=== PATIENT | male | born 1960 | race Caucasian/White ===

== ENCOUNTER 2021-02-22 12:02 | Emergency (ER) | payer BC, SELFPAY ==
[2021-02-22 15:03] LABS: Basophils % 0.4 % (0-1.3); Hematocrit 50.6 % (39.6-49.0); Lymphocytes % 17.5 % (15.3-44.8); MPV 8.5 fL (7.6-11.3); RBC Red Blood Cell Count 5.46 M/uL (4.33-5.43)
[2021-02-22 15:17] LABS: Albumin 3.5 g/dL (3.4-5.0); Bilirubin Direct 0.2 mg/dL (0-0.2); Bilirubin Total 0.7 mg/dL (0.2-1.0); Potassium 4.1 mmol/L (3.5-5.1); Protein, Total 7.8 g/dL (6.4-8.2)
--- NOTE | 2021-02-22 16:17 | RAD REPORT ---
EXAM DESCRIPTION: CTAbdomen Pelvis W Contrast - 02/22/2021 4:04 pm CLINICAL HISTORY: . ABD PAIN COMPARISON: No comparisons TECHNIQUE: Biphasic CT imaging of the abdomen and pelvis was performed with 100 ml non-ionic IV cont rast. All CT scans are performed using dose optimization technique as appropriate and may include automated exposure control or mA/KV adjustment according to patient size. FINDINGS: Lower chest: Nonspecific subpleural nodularity in the lower lungs. Coronary artery calcifi cation. Liver: No acute abnormality or suspicious lesions. Biliary: No biliary ductal dilatation. Stomach: No significant focal abnormality. Duodenum: No significant focal abnormality. Pancreas: No significant abnormality. Spleen: No significant abnormality. Adrenal: No suspicious lesions. Kidney/ureter: No hydronephrosis. No renal calculi. Retroperitoneum: No retroperitoneal adenopathy. Vascular: No aneurysm. Bowel: No significant focal abnormality. Normal appendix. Peritoneum: No ascites or free air. Bladder: Grossly unremarkable. Reproductive: No adnexal masses. Bones: No acute fracture. Other: n/a IMPRESSION: No acute intra-abdominal or pelvic finding. Nonspecific subpleural nodularity in the low er lungs could reflect atelectasis versus mild infection/inflammation. Normal appendix. No urinary tr act calculi identified.
--- NOTE | 2021-02-22 16:42 | RAD REPORT ---
EXAM DESCRIPTION: RAD - Chest Single View - 02/22/2021 4:23 pm CLINICAL HISTORY: COUGH COMPARISON: CHEST SINGLE VIEW dated 11/26/2012; Abdomen Pelvis W Contrast dated 02/22/2021 FINDINGS: Lines: None. Lungs: No evidence of edema or pneumonia. Pleural: No significant pleural effusions or pneumothorax. Cardiac: The heart size is within normal limits. Bones: No acute fractures. Other: IMPRESSION: No acute cardiopulmonary disease.
[2021-02-22] MEDS ORDERED: NA CHLORIDE 0.9% 1,000 ML ONE (18:37)
[2021-02-22 22:21] LABS: Urine Blood Negative (Negative); Urine Glucose 2+ (Negative); Urine Protein 2+ (Negative); Urine Specific Gravity >=1.030 (1.005-1.030)
--- NOTE | 2021-02-22 22:38 | ER ---
Nurse's Notes [facility] Name: Neftali Aldana Jr Age: 60 yrs Sex: Male : 1960 Arrival Date: 02/22/2021 Time: 12:03 Bed 26 Private MD: Adam Stacy T Diagnosis: Coronavirus infection, unspecified Presentation: 02/22 12:37 Chief complaint: Patient states: i guess it started a couple of months ago. i had a tw2 light flu and got over. i wasn't tested. it wasn't that bad. then about a week ago i started feeling bad again. i think i ate something bad. i dont know if i have IBS or appendix problems or gallbladder got hot and warm to the touch. my back started hurting. i think i had shingles and that went away . those were on my stomach and my right side. dark urine for 3 or 4 weeks. 12:37 Method Of Arrival: Ambulatory tw2 12:39 Chief complaint: Patient states: i also have chest pain that started yesterday and tw2 blood when i blow my nose. and i am very weak. chest pain with coughing and palpation. Coronavirus screen: congestion, cough unrelated to allergies, difficulty breathing, fatigue, shortness of breath, Client presents with at least one sign or symptom that may indicate coronavirus-19. Standard/surgical mask placed on the client. Provider contacted for isolation considerations. Ebola Screen: Patient denies travel to an Ebola-affected area in the 21 days before illness onset. Initial Sepsis Screen: Does the patient meet any 2 criteria? No. Patient's initial sepsis screen is negative. Does the patient have a suspected source of infection? No. Patient's initial sepsis screen is negative. Risk Assessment: Do you want to hurt yourself or someone else? Patient reports no desire to harm self or others. 12:43 Onset of symptoms was February 22, 2021. tw2 12:43 Acuity: MIRNA 3 tw2 Triage Assessment: 12:44 General: Appears in no apparent distress. Behavior is calm, cooperative, appropriate tw2 for age. Pain: Complains of pain in abdomen. Cardiovascular: Reports pain with palpation. Respiratory: Reports pain with respiration. Historical: - Allergies: 12:40 Yeast; tw2 12:40 "foot fungus medicine"; tw2 - Home Meds: 12:40 Probiotic oral [Active]; ibuprofen 400 mg Oral tab 1 tab every 6 hours [Active]; tw2 - PMHx: 12:40 Diabetes mellitus; tw2 - PSHx: 12:40 stomach surgery, by Dr. Duvall; tw2 - Immunization history:: Client reports having NOT received the Covid vaccine. - Social history:: Smoking status: Patient denies any tobacco usage or history of. - Family history:: No immediate family members are acutely ill. - Code Status:: Full code. Screenin:31 Abuse screen: Denies threats or abuse. Nutritional screening: No deficits noted. kh1 Tuberculosis screening: No symptoms or risk factors identified. Fall Risk None identified. Assessment: 14:27 General: Appears in no apparent distress. Pain: Complains of pain in chest Pain does kh not radiate. Pain currently is 3 out of 10 on a pain scale. Quality of pain is described as tightness Pain began gradually. 14:42 Reassessment: patient provided with urinal, specimen container, wipes and education for ap3 urine collection. patient verbalized understanding. 16:00 Reassessment: Patient appears in no apparent distress at this time. No changes from [facility] previously documented assessment. Patient and/or family updated on plan of care and expected duration. Pain level reassessed. Patient is alert, oriented x 3, equal unlabored respirations, skin warm/dry/pink. 17:00 Reassessment: Patient appears in no apparent distress at this time. No changes from [facility] previously documented assessment. Patient and/or family updated on plan of care and expected duration. Pain level reassessed. Patient is alert, oriented x 3, equal unlabored respirations, skin warm/dry/pink. 19:09 Reassessment: Patient appears in no apparent distress at this time. No changes from [facility] previously documented assessment. Patient and/or family updated on plan of care and expected duration. Pain level reassessed. Patient is alert, oriented x 3, equal unlabored respirations, skin warm/dry/pink. Vital Signs: 12:43 BP 126 / 95; Pulse 100; Resp 18; Temp 99.0(TE); Pulse Ox 100% on R/A; Weight 74.84 kg tw2 (R); 14:27 BP 156 / 97; Pulse 103; Resp 20; Temp 99.2; Pulse Ox 96% on R/A; kh1 23:47 BP 137 / 93; Pulse 94; Resp 20; Temp 99.1; Pulse Ox 98% ; wr ED Course: 12:03 Patient arrived in ED. am2 12:05 Adam Stacy MD is Private Physician. am2 12:44 Triage completed. tw2 12:44 Arm band placed on. tw2 14:11 Mary Mcgowan FNP-C is PHCP. kb 14:11 Puneet Wan MD is Attending Physician. kb 14:20 Amy Escobar is Primary Nurse. kh1 14:31 Patient has correct armband on for positive identification. Bed in low position. Call [facility] light in reach. Side rails up X 1. electronic device monitor on. Pulse ox on. NIBP on. 14:32 No provider procedures requiring assistance completed. kh1 14:32 Patient maintains SpO2 saturation greater than 95% on room air. kh1 14:43 Basic Metabolic Panel Sent. 1 14:43 CBC with Diff Sent. 1 14:43 Hepatic Function Sent. 1 14:43 Lipase Sent. 1 16:03 CT Abd/Pelvis - IV Contrast Only In Process Unspecified. EDMS 16:23 Chest Single View XRAY In Process Unspecified. EDMS 18:33 PHCP role handed off by Mary Mcgowan FNP-C [facility] 18:33 Ovidio Malin PA is PHCP. jero Administered Medications: 18:15 Drug: NS 0.9% 1000 ml Route: IV; Rate: 1000 ml; Site: right antecubital; ap3 Outcome: 22:38 Discharge ordered by . jero 23:49 Patient left the ED. Signatures: Dispatcher [employer] EDMS Mary Mcgowan FNP-C FNP-Ckb Mickail, Joel, PA PA jmm Wise, Tara RN RN tw2 Sharon Lund am2 Sharon Mejía RN RN ap3 Amy Escobar 1 Epifanio Handley Corrections: (The following items were deleted from the chart) 12:42 12:40 Home Meds: None; tw2 tw2
--- NOTE | 2021-02-22 22:39 | EDPHYS ---
Physician Documentation [facility] Name: Neftali Aldana Jr Age: 60 yrs Sex: Male : 1960 Arrival Date: 02/22/2021 Time: 12:03 Bed 26 Private MD: Adam Stacy T ED Physician Puneet Wan HPI: 02/22 17:41 This 60 yrs old Male presents to ER via Ambulatory with complaints of RLQ Abd kb swelling, Chest Pain, Back Pain, bloody phlegm, Hip Pain, Doesn't Feel Right. 17:41 The patient or guardian reports cough, that is intermittent, described as moderate, kb with productive sputum. Onset: The symptoms/episode began/occurred 2 week(s) ago. Severity of symptoms: At their worst the symptoms were moderate, in the emergency department the symptoms are unchanged. Modifying factors: The symptoms are alleviated by nothing, the symptoms are aggravated by nothing. Associated signs and symptoms: The patient has no apparent associated signs or symptoms. The patient has not experienced similar symptoms in the past. The patient has not recently seen a physician. Pt reports cough for 2 weeks. States "I think I have covid and a few other things." Reports abd pain for a couple of months as well. Historical: - Allergies: 12:40 Yeast; tw2 12:40 "foot fungus medicine"; tw2 - Home Meds: 12:40 Probiotic oral [Active]; ibuprofen 400 mg Oral tab 1 tab every 6 hours [Active]; tw2 - PMHx: 12:40 Diabetes mellitus; tw2 - PSHx: 12:40 stomach surgery, by Dr. Duvall; tw2 - Immunization history:: Client reports having NOT received the Covid vaccine. - Social history:: Smoking status: Patient denies any tobacco usage or history of. - Family history:: No immediate family members are acutely ill. - Code Status:: Full code. ROS: 17:41 Constitutional: Negative for fever, chills, and weight loss. kb 17:41 Respiratory: Positive for cough, Negative for dyspnea on exertion, hemoptysis, kb orthopnea, pleurisy, shortness of breath, sputum production, wheezing. 17:41 Abdomen/GI: Positive for abdominal pain. 17:41 All other systems are negative. Exam: 17:41 Constitutional: This is a well developed, well nourished patient who is awake, alert, kb and in no acute distress. Head/Face: Normocephalic, atraumatic. ENT: Moist Mucous membranes Cardiovascular: Regular rate and rhythm with a normal S1 and S2. No gallops, murmurs, or rubs. No pulse deficits. Respiratory: Respirations even and unlabored. No increased work of breathing, no retractions or nasal flaring. Abdomen/GI: Soft, non-tender. No distention Skin: Warm, dry with normal turgor. Normal color. MS/ Extremity: Pulses equal, no cyanosis. Neurovascular intact. Full, normal range of motion. Neuro: Awake and alert, GCS 15, oriented to person, place, time, and situation. Moves all extremities. Normal gait. Psych: Awake, alert, with orientation to person, place and time. Behavior, mood, and affect are within normal limits. Vital Signs: 12:43 BP 126 / 95; Pulse 100; Resp 18; Temp 99.0(TE); Pulse Ox 100% on R/A; Weight 74.84 kg tw2 (R); 14:27 BP 156 / 97; Pulse 103; Resp 20; Temp 99.2; Pulse Ox 96% on R/A; kh1 23:47 BP 137 / 93; Pulse 94; Resp 20; Temp 99.1; Pulse Ox 98% ; wr MDM: 14:11 Patient medically screened. kb 17:41 Data reviewed: vital signs, nurses notes. Data interpreted: Pulse oximetry: on room air kb is 96 %. Interpretation: normal. Counseling: I had a detailed discussion with the patient and/or guardian regarding: the historical points, exam findings, and any diagnostic results supporting the discharge/admit diagnosis, lab results, radiology results, the need for outpatient follow up, a family practitioner, to return to the emergency department if symptoms worsen or persist or if there are any questions or concerns that arise at home. 02/22 14:11 Order name: Basic Metabolic Panel; Complete Time: 15:18 kb 02/22 14:11 Order name: CBC with Diff; Complete Time: 15:12 kb 02/22 14:11 Order name: Hepatic Function; Complete Time: 15:18 kb 02/22 14:11 Order name: Lipase; Complete Time: 15:18 kb 02/22 17:43 Order name: SARS-COV-2 RT PCR; Complete Time: 17:45 EDMS 02/22 14:11 Order name: IV Saline Lock; Complete Time: 14:42 kb 02/22 14:11 Order name: Labs collected and sent; Complete Time: 14:42 kb 02/22 15:24 Order name: Chest Single View XRAY; Complete Time: 16:43 kb 02/22 15:24 Order name: CT Abd/Pelvis - IV Contrast Only; Complete Time: 16:26 kb 02/22 20:15 Order name: BMP; Complete Time: 22:37 jmm 02/22 22:21 Order name: Urine Dipstick-Ancillary; Complete Time: 22:24 EDMS Administered Medications: 18:15 Drug: NS 0.9% 1000 ml Route: IV; Rate: 1000 ml; Site: right antecubital; ap3 Disposition: 02/23 04:48 Co-signature as Attending Physician, Puneet Wan MD I agree with the assessment and kdr plan of care. Disposition Summary: 02/22/21 22:38 Discharge Ordered Location: Home [facility] Condition: Stable [facility] Diagnosis - Coronavirus infection, unspecified [facility] Followup: kb - With: Emergency Department - When: As needed - Reason: Worsening of condition Followup: kb - With: Private Physician - When: 2 - 3 days - Reason: Recheck today's complaints, Continuance of care, Re-evaluation by your physician Discharge Instructions: - Discharge Summary Sheet kb - COVID-19 kb - COVID-19 Frequently Asked Questions kb Forms: - Medication Reconciliation Form [facility] - Thank You Letter jm - Antibiotic Education jm - Prescription Opioid Use [facility] Signatures: Dispatcher [employer] EDMS Mary Mcgowan, TANK BOTTOM ASSEMBLER-C TANK BOTTOM ASSEMBLER-Ckb Puneet Wan MD MD kdr Mickail, Joel, PA PA m Doreen Garrido RN RN tw2 Sharon Mejía RN RN ap3 Amy Escobar formerly [facility] Corrections: (The following items were deleted from the chart) 02/22 12:42 12:40 Home Meds: None; tw 16:07 15:25 CORONAVIRUS+ ordered. EDOH EDMS
[2021-02-22 23:57] VITALS: BP 137/93; TEMP 99.1; O2SAT 98
== END 2021-02-22 23:49 | disposition home or self-care (01) ==
LOC: ER 12:02
DX: U07.1 COVID-19 (principal); E11.9 Type 2 diabetes mellitus without complications
CPT/HCPCS: 36415; 71045; 74177; 80048; 80076; 81003; 83690; 85025; 99285; J7030; Q9967; U0003

== ENCOUNTER → 2023-06-15 | Emergency (ER) | payer OTHER ==
[~2023-06-15] MED LIST: MAGNESIUM CITRATE 300 ML BOT ONE; NA CHLORIDE 0.9% 1,000 ML ONE
[2023-06-15 18:32] LABS: Absolute Lymphocytes (CBC) 1.6 K/uL (0.7-4.9); Hematocrit 39.8 % (39.6-49.0); Lymphocytes % 19.6 % (15.3-44.8); MCV 93.1 fL (80-100); Platelets 183 thou/uL (152-406); RBC Red Blood Cell Count 4.27 M/uL (4.33-5.43)
[2023-06-15 18:50] LABS: Albumin 3.1 g/dL (3.4-5.0); Bilirubin Total 0.8 mg/dL (0.2-1.0); Potassium 4.9 mEq/L (3.5-5.1); Protein, Total 6.8 g/dL (6.4-8.2)
--- NOTE | 2023-06-15 20:12 | RAD REPORT ---
EXAM DESCRIPTION: CTAbdomen Pelvis W Contrast - 06/15/2023 7:55 pm CLINICAL HISTORY: Abdominal pain. ABD PAIN COMPARISON: <Comparisons> TECHNIQUE: Biphasic CT imaging of the abdomen and pelvis was performed with 100 ml non-ionic IV cont rast. All CT scans are performed using dose optimization technique as appropriate and may include automated exposure control or mA/KV adjustment according to patient size. FINDINGS: The lung bases are clear. The liver, spleen, pancreas, adrenal glands and kidneys are within normal limits. No bowel obstruction, free air, free fluid or abscess. Asymmetric thickening of the rectal wall is se en in the pelvis, measuring up to 18 mm. There is significant fecal retention seen throughout the col on. The appendix is normal. No evidence of significant lymphadenopathy. No suspicious bony findings. IMPRESSION: There is a large amount of retained stool throughout the colon. Asymmetric wall thickening of the rectal wall in the pelvis noted, measuring up to 18 mm in the left lateral aspect. No acute or aggressive abnormality elsewhere detected.
--- NOTE | 2023-06-15 20:32 | ER ---
Nurse's Notes [facility] Name: Neftali Aldana Jr Age: 63 yrs Sex: Male : 1960 Arrival Date: 06/15/2023 Time: 16:52 Bed 18 Private MD: Diagnosis: Constipation Presentation: 06/15 17:20 Chief complaint: Patient states: Pt states he has not had a bowel movement since tl4 06/08/23. Pt has pertinent history of stage 3 rectal cancer. Coronavirus screen: Vaccine status: Patient reports receiving the 2nd dose of the covid vaccine. Ebola Screen: Patient negative for fever greater than or equal to 101.5 degrees Fahrenheit, and additional compatible Ebola Virus Disease symptoms Patient denies exposure to infectious person. Patient denies travel to an Ebola-affected area in the 21 days before illness onset. No symptoms or risks identified at this time. Initial Sepsis Screen: Does the patient meet any 2 criteria? No. Patient's initial sepsis screen is negative. Does the patient have a suspected source of infection? No. Patient's initial sepsis screen is negative. Risk Assessment: Do you want to hurt yourself or someone else? Patient reports no desire to harm self or others. Onset of symptoms was June 08, 2023. 17:20 Method Of Arrival: Ambulatory tl4 17:20 Acuity: MIRNA 2 tl4 Triage Assessment: 17:25 General: Appears uncomfortable, Behavior is calm, cooperative. Pain: Complains of pain tl4 in abdomen. GI: Abdomen is tender to palpation Reports lower abdominal pain, constipation. Historical: - Allergies: 17:24 Yeast; tl4 - PMHx: 17:24 diabetes mellitus; cancer rectum; tl4 - PSHx: 17:24 stomach surgery; tl4 - Immunization history:: Adult Immunizations unknown. - Social history:: Smoking status: Patient denies any tobacco usage or history of. Screenin:25 [facility] ED Fall Risk Assessment (Adult) History of falling in the last 3 months, kc6 including since admission No falls in past 3 months (0 pts) Confusion or Disorientation No (0 pts) Intoxicated or Sedated No (0 pts) Impaired Gait No (0 pts) Mobility Assist Device Used No (0 pt) Altered Elimination No (0 pt) Score/Fall Risk Level 0 - 2 = Low Risk. Abuse screen: Denies threats or abuse. Denies injuries from another. Nutritional screening: No deficits noted. Tuberculosis screening: No symptoms or risk factors identified. Assessment: 18:27 General: Appears in no apparent distress. uncomfortable, well groomed, well developed, kc6 Behavior is calm, cooperative, appropriate for age. Pain: Complains of pain in abdomen Pain currently is 7 out of 10 on a pain scale. Neuro: Level of Consciousness is awake, alert, obeys commands, Oriented to person, place, time, situation, Appropriate for age. Cardiovascular: Capillary refill < 3 seconds. Respiratory: Airway is patent Trachea midline Respiratory effort is even, unlabored, Respiratory pattern is regular, symmetrical. GI: Abdomen is flat, non-distended, Last BM was June 08, 2023. Bowel sounds present X 4 quads. Reports constipation, nausea, Patient currently denies diarrhea, vomiting. : No signs and/or symptoms were reported regarding the genitourinary system. EENT: No signs and/or symptoms were reported regarding the EENT system. Derm: No signs and/or symptoms reported regarding the dermatologic system. Skin is intact, is healthy with good turgor, Skin is pink, warm \T\ dry. Musculoskeletal: No signs and/or symptoms reported regarding the musculoskeletal system. Circulation, motion, and sensation intact. Capillary refill < 3 seconds, Range of motion: intact in all extremities. 19:17 Reassessment: Patient appears in no apparent distress at this time. No changes from km8 previously documented assessment. Patient and/or family updated on plan of care and expected duration. Pain level reassessed. Patient is alert, oriented x 3, equal unlabored respirations, skin warm/dry/pink. pt re-educated on need for urine sample; pt unable to give at this time, will call out when he is able to. Vital Signs: 17:20 BP 112 / 72; Pulse 99; Resp 18; Temp 97.4; Pulse Ox 100% on R/A; Weight 58.97 kg; tl4 Height 5 ft. 5 in. ; Pain 8/10; 18:36 BP 126 / 82; Pulse 90; Resp 19; Pulse Ox 100% on R/A; Pain 7/10; kc6 19:13 BP 120 / 68; Pulse 75; Resp 16; Pulse Ox 100% on R/A; km8 20:57 BP 120 / 71; Pulse 78; Resp 16; Pulse Ox 100% on R/A; km8 17:20 Body Mass Index 21.63 (58.97 kg, 165.1 cm) tl4 17:20 Pain Scale: Adult tl4 18:36 Pain Scale: Adult kc6 ED Course: 16:59 Patient arrived in ED. ae5 17:03 Mary Mcgowan, [facility] kb 17:03 Henrique Rea MD is Attending Physician. kb 17:23 Triage completed. tl4 17:25 Arm band placed on left wrist. tl4 18:07 Dayna Marte, [place] is Primary Nurse. kc6 18:25 Inserted saline lock: 20 gauge in left antecubital area, using aseptic technique. Blood kc6 collected. Patient maintains SpO2 saturation greater than 95% on room air. 18:26 Patient has correct armband on for positive identification. Bed in low position. Call kc6 light in reach. Side rails up X 1. Client placed on continuous cardiac and pulse oximetry monitoring. NIBP monitoring applied. 19:57 CT Abd/Pelvis - IV Contrast Only In Process Unspecified. EDMS 20:33 Provided Education on: d/c teaching. km8 20:33 No provider procedures requiring assistance completed. km8 20:57 IV discontinued, intact, bleeding controlled, No redness/swelling at site. Pressure km8 dressing applied. Administered Medications: 18:25 Drug: NS 0.9% IV 1000 ml IV at 1 bolus Per protocol; 1000 mL bolus Route: IV; Rate: 1 kc6 bolus; Site: left antecubital; 20:00 Follow up: IV Status: Completed infusion; IV Intake: 1000ml km8 20:51 Drug: Magnesium Citrate PO Liquid 300 ml PO once Route: PO; km8 20:58 Follow up: Response: Medication administered at discharge. km8 Medication: 20:33 VIS not applicable for this client. km8 Intake: 20:00 IV: 1000ml; Total: 1000ml. km8 Outcome: 20:31 Discharge ordered by . kb 20:57 Discharged to home ambulatory, km8 20:57 Condition: good 20:57 Discharge instructions given to patient, Instructed on discharge instructions, follow up and referral plans. Demonstrated understanding of instructions, follow-up care, 20:58 Patient left the ED. km8 Signatures: Dispatcher [employer] EDIN Juan M Mary, RADIOPHONE OPERATOR-C RADIOPHONE OPERATOR-Dayna Elias, RN RN kc6 GabeAnna RN RN km8 Harpreet Sharpe 4 Nettie Cruz ae5
--- NOTE | 2023-06-15 20:32 | EDPHYS ---
Physician Documentation [facility] Name: Neftali Aldana Jr Age: 63 yrs Sex: Male : 1960 Arrival Date: 06/15/2023 Time: 16:52 Bed 18 Private MD: ED Physician Henrique Rea HPI: 06/15 17:22 This 63 yrs old Male presents to ER via Unassigned with complaints of Constipation. kb 17:22 Dr Adam Parker with oncology consultants recommended pt come to the ER for kb constipation x1 week to make sure he does not have a bowel obstruction. Pt states he has rectal cancer. Denies abd pain, reports fullness to abd. Denies urge to have a bowel movement. Historical: - Allergies: 17:24 Yeast; tl4 - PMHx: 17:24 diabetes mellitus; cancer rectum; tl4 - PSHx: 17:24 stomach surgery; tl4 - Immunization history:: Adult Immunizations unknown. - Social history:: Smoking status: Patient denies any tobacco usage or history of. ROS: 17:22 Constitutional: Negative for fever, chills, and weight loss, kb 17:22 Abdomen/GI: Positive for constipation, Negative for abdominal pain, nausea and vomiting, 17:22 All other systems are negative, Exam: 17:22 Constitutional: This is a well developed, well nourished patient who is awake, alert, kb and in no acute distress. Head/Face: Normocephalic, atraumatic. ENT: Moist Mucous membranes Cardiovascular: Regular rate Respiratory: Respirations even and unlabored. No increased work of breathing. Talking in full sentences Skin: Warm, dry with normal turgor. Normal color. MS/ Extremity: Pulses equal, no cyanosis. Neurovascular intact. Full, normal range of motion. Neuro: Awake and alert, GCS 15, oriented to person, place, time, and situation. Moves all extremities. Normal gait. 17:25 Abdomen/GI: Inspection: abdomen appears normal, Palpation: soft, in all quadrants, mild kb abdominal tenderness, in the left upper quadrant and left lower quadrant, moderate abdominal tenderness, in the right upper quadrant and right lower quadrant, Vital Signs: 17:20 BP 112 / 72; Pulse 99; Resp 18; Temp 97.4; Pulse Ox 100% on R/A; Weight 58.97 kg; tl4 Height 5 ft. 5 in. ; Pain 8/10; 18:36 BP 126 / 82; Pulse 90; Resp 19; Pulse Ox 100% on R/A; Pain 7/10; kc6 19:13 BP 120 / 68; Pulse 75; Resp 16; Pulse Ox 100% on R/A; km8 20:57 BP 120 / 71; Pulse 78; Resp 16; Pulse Ox 100% on R/A; km8 17:20 Body Mass Index 21.63 (58.97 kg, 165.1 cm) tl4 17:20 Pain Scale: Adult tl4 18:36 Pain Scale: Adult kc6 MDM: 17:11 Patient medically screened. kb 17:23 Data reviewed: vital signs, nurses notes. kb 17:24 Differential diagnosis: fecal impaction, constipation secondary to rectal cancer, bowel kb obstruction. 20:30 Counseling: I had a detailed discussion with the patient and/or guardian regarding the kb historical points, exam findings, and any diagnostic results supporting the discharge/admit diagnosis, the need for outpatient follow up, a family practitioner, Oncology, to return to the emergency department if symptoms worsen or persist or if there are any questions or concerns that arise at home. 20:30 ED course: No bowel obstruction on CT. Patient given printed copy of results. Patient kb will follow-up with oncologist in [place].. 06/15 17:24 Order name: CBC with Diff; Complete Time: 18:59 kb 06/15 17:24 Order name: CMP; Complete Time: 18:59 kb 06/15 17:24 Order name: Lipase; Complete Time: 18:59 kb 06/15 17:24 Order name: Urinalysis w/ reflexes kb 06/15 17:24 Order name: CT Abd/Pelvis - IV Contrast Only; Complete Time: 20:18 kb 06/15 17:24 Order name: IV Saline Lock; Complete Time: 18:25 kb 06/15 17:24 Order name: Labs collected and sent; Complete Time: 18:25 kb Administered Medications: 18:25 Drug: NS 0.9% IV 1000 ml IV at 1 bolus Per protocol; 1000 mL bolus Route: IV; Rate: 1 kc6 bolus; Site: left antecubital; 20:00 Follow up: IV Status: Completed infusion; IV Intake: 1000ml [facility] 20:51 Drug: Magnesium Citrate PO Liquid 300 ml PO once Route: PO; 8 20:58 Follow up: Response: Medication administered at discharge. [facility] Disposition: 06/16 08:58 Co-signature as Attending Physician, Henrique Rea MD I reviewed the patient's care rn provided by the Advanced Practice Provider and agree with the diagnosis and treatment plan. Disposition Summary: 06/15/23 20:31 Discharge Ordered Notes: Location: Home kb Condition: Stable kb Diagnosis - Constipation kb Followup: kb - With: Emergency Department - When: As needed - Reason: Worsening of condition Followup: kb - With: Private Physician - When: 2 - 3 days - Reason: Recheck today's complaints, Continuance of care, Re-evaluation by your physician Discharge Instructions: - Discharge Summary Sheet kb - Constipation, Adult, [id number] kb Forms: - Medication Reconciliation Form kb - Thank You Letter kb - Antibiotic Education kb - Prescription Opioid Use kb - Patient Portal Instructions kb - Leadership Thank You Letter kb Signatures: Dispatcher [employer] EDMS Mary Mcgowan, [employer]C [employer]-Henrique Artis MD MD rn Campbell, Kaitlyn, RN RN ben6 Anna Bernal RN RN km8 Annemarie, Harpreet 4 Corrections: (The following items were deleted from the chart) 06/15 17:25 17:22 Dr Adam Parker with oncology consultants recommended pt come to the ER for kb constipation x1 week. Pt states he has rectal cancer.. kb 17:26 17:22 Constitutional: This is a well developed, well nourished patient who is awake, kb alert, and in no acute distress. Head/Face: Normocephalic, atraumatic. ENT: Moist Mucous membranes Cardiovascular: Regular rate Respiratory: Respirations even and unlabored. No increased work of breathing. Talking in full sentences Abdomen/GI: Soft, non-tender. No distention Skin: Warm, dry with normal turgor. Normal color. MS/ Extremity: Pulses equal, no cyanosis. Neurovascular intact. Full, normal range of motion. Neuro: Awake and alert, GCS 15, oriented to person, place, time, and situation. Moves all extremities. Normal gait. kb 20:30 17:22 Dr Adam Parker with oncology consultants recommended pt come to the ER for kb constipation x1 week. Pt states he has rectal cancer. Denies abd pain, reports fullness to abd. Denies urge to have a bowel movement. kb
[2023-06-15 20:41] LABS: Urine Bacteria <20 /HPF (<20); Urine Bilirubin NEGATIVE (Negative); Urine Blood Negative (Negative); Urine Clarity Clear (Clear); Urine Color Yellow (Yellow); Urine Glucose 4+ (Negative); Urine Mucus 1+ /HPF (None Seen); Urine Protein 1+ (Negative); Urine RBC <5 /HPF (None Seen); Urine Urobilinogen 1+ (Normal)
[2023-06-15 20:58] LABS: Specific Gravity > 1.030 (1.005-1.030)
[2023-06-15 21:21] VITALS: TEMP 97.4; O2SAT 100
[2023-06-15 21:30] VITALS: BP 120/71
== END ==
LOC: ER 16:52
DX: K59.00 Constipation, unspecified (principal); Z85.048 Personal history of other malignant neoplasm of rectum, rectosigmoid junction, and anus; Z91.018 Allergy to other foods
CPT/HCPCS: 96361; 85025; 81001; 36415; 83690; 80053; 74177; 96360; 99285; Q9967; J7030

== ENCOUNTER 2024-02-04 14:28 | Emergency (ER) | payer OTHER ==
[2024-02-04 14:52] LABS: Absolute Eosinophils 0.1 K/uL (0-0.5); Absolute Lymphocytes (CBC) 1.6 K/uL (0.7-4.9); Absolute Monocytes 0.5 K/uL (0.1-1.3); Absolute Neutrophil 8.6 K/uL (1.8-8.0); Basophils % 0.4 % (0-1.3); Eosinophils % 1.4 % (0-4.4); Hematocrit 42.1 % (39.6-49.0); Hemoglobin 14.3 g/dL (13.6-17.9); Lymphocytes % 14.7 % (15.3-44.8); MCH 32.4 pg (27.0-35.0); MCV 95.4 fL (80-100); MPV 6.9 fL (7.6-11.3); Monocytes % 4.4 % (3.3-12.3); Neutrophils % 79.1 % (41.7-73.7); Platelets 289 thou/uL (152-406); RBC Red Blood Cell Count 4.41 M/uL (4.33-5.43); Red Cell Distribution Width 13.3 % (12.1-15.2)
[2024-02-04] MEDS ORDERED: NA CHLORIDE 0.9% 1,000 ML ONE (15:08)
[2024-02-04] MEDS ORDERED: MORPHINE 4 MG/ML SYR ONE ×2 (15:08→20:09)
[2024-02-04 15:11] LABS: Albumin 3.4 g/dL (3.4-5.0); Albumin/Globulin Ratio 0.9 (1.1-1.8); Anion Gap 8.9 mEq/L (5.0-15.0); Bilirubin Total 0.9 mg/dL (0.2-1.0); Globulin 3.8 g/dL (2.3-3.5); Potassium 3.9 mEq/L (3.5-5.1); Protein, Total 7.2 g/dL (6.4-8.2)
--- NOTE | 2024-02-04 15:48 | RAD REPORT ---
EXAM DESCRIPTION: CTAbdomen Pelvis W Contrast - 02/04/2024 3:35 pm CLINICAL HISTORY: Abdominal pain. ABD PAIN COMPARISON: <Comparisons> TECHNIQUE: Venous phase CT imaging of the abdomen and pelvis was performed with 100 ml non-ionic IV contrast. All CT scans are performed using dose optimization technique as appropriate and may include automated exposure control or mA/KV adjustment according to patient size. FINDINGS: The lung bases are clear. The liver, spleen, pancreas, adrenal glands and kidneys are within normal limits. No bowel obstruction, free air, free fluid or abscess. There is a large amount of stool retained in t he colon. There is significant asymmetric thickening of the medial aspect of the cecum measuring up t o 2.5 cm. The adjacent fat is mildly inflamed. The appendix appears thickened to 11 mm. No suspicious bony findings. IMPRESSION: Asymmetric thickening of the cecum wall is present measure up to 2.5 cm with dilatation of the appendix up to 11 mm. This could indicate acute appendicitis with secondary edema of the cecum , or a cecal mass/neoplasm with secondary dilatation of the appendix. Mild inflammation in the fat pantoja rrounding the cecum is present. Correlation with appropriate laboratory and physical exam findings re commended. Prominent retention of stool is present throughout the colon compatible with significant constipation .
--- NOTE | 2024-02-04 17:01 | ER ---
Nurse's Notes [facility] Name: Neftali Aldana Jr Age: 63 yrs Sex: Male : 1960 Arrival Date: 02/04/2024 Time: 14:28 Bed 9 Private MD: Diagnosis: Cecal mass;Possible Appendicitis;Lower abdominal pain, unspecified;Other constipation Presentation: 02/03 14:42 Chief complaint: EMS states: toned out for severe abdominal pain that started today. me1 Stg 3 rectal cancer w/blockage. reports rectal bleeding. Unable to have BM w/laxatives. Denies n/v. Was on chemo til 2 months ago and is now on radiation- next treatment is tomorrow. Coronavirus screen: Vaccine status: Patient reports being unvaccinated. Ebola Screen: No symptoms or risks identified at this time. Initial Sepsis Screen: Does the patient meet any 2 criteria? No. Patient's initial sepsis screen is negative. Does the patient have a suspected source of infection? No. Patient's initial sepsis screen is negative. Risk Assessment: Do you want to hurt yourself or someone else? Patient reports no desire to harm self or others. Onset of symptoms was February 04, 2024. 14:42 Method Of Arrival: EMS: [facility] pr1 14:42 Acuity: [facility] 3 me1 14:42 Care prior to arrival: Glucose check: 150. pr1 Triage Assessment: 14:42 General: Appears uncomfortable, Behavior is calm, cooperative, appropriate for age. me1 Pain: Complains of pain in abdomen. Historical: - Allergies: 14:50 Yeast; me1 - PMHx: 14:50 cancer rectum; diabetes mellitus; me1 - PSHx: 14:50 stomach surgery; stomach surgery; stomach surgery by Dr Duvall; me1 - Immunization history:: Adult Immunizations up to date. - Infectious Disease History:: Denies. - Social history:: Smoking status: Patient denies any tobacco usage or history of. Screenin:42 [facility] ED Fall Risk Assessment (Adult) History of falling in the last 3 months, me1 including since admission No falls in past 3 months (0 pts) Confusion or Disorientation No (0 pts) Intoxicated or Sedated No (0 pts) Impaired Gait Yes (1 pt) Mobility Assist Device Used Yes (1 pt) Altered Elimination No (0 pt) Score/Fall Risk Level 0 - 2 = Low Risk Maintained a safe environment, Provided non-skid footwear, Hourly rounding (assess needs \T\ fall precautionary measures) done. Abuse screen: Denies threats or abuse. Nutritional screening: No deficits noted. Tuberculosis screening: No symptoms or risk factors identified. Assessment: 14:42 General: See triage assessment. . me1 18:43 Reassessment: attempted to call report. this nurse was left on hold for 11 minutes. ap3 will reattempt. 19:28 General: Report called to AUGUSTA Pitt at [facility]. me1 Vital Signs: 14:42 BP 126 / 68; Pulse 67; Resp 16; Temp 98.6; Pulse Ox 98% on R/A; Weight 68.04 kg; Height me1 5 ft. 5 in. ; Pain 10/10; 15:47 BP 137 / 71; Pulse 85; Resp 16; Pulse Ox 100% on R/A; me1 17:00 BP 122 / 74; Pulse 98; Resp 17; Pulse Ox 100% on R/A; me1 18:00 BP 133 / 76; Pulse 99; Resp 18; Pulse Ox 99% on R/A; me1 19:00 BP 122 / 68; Pulse 98; Resp 16; Pulse Ox 98% ; me1 20:00 BP 118 / 65; Pulse 97; Resp 16; Temp 98.2; Pulse Ox 98% on R/A; me1 14:42 Body Mass Index 24.96 (68.04 kg, 165.1 cm) me1 14:42 Pain Scale: Adult pr1 ED Course: 14:29 Patient arrived in ED. ec2 14:29 John Duffy MD is Attending Physician. ec2 14:42 Leidy Forte, [place] is Primary Nurse. me1 14:42 No provider procedures requiring assistance completed. me1 14:42 Patient has correct armband on for positive identification. Bed in low position. Call me1 light in reach. Side rails up X2. Provided Education on: POC. Verbalized understanding.. Client placed on continuous cardiac and pulse oximetry monitoring. NIBP monitoring applied. Pulse ox on. NIBP on. 14:46 Initial lab(s) drawn, by me, sent to lab. Inserted saline lock: 20 gauge in left zm antecubital area, using aseptic technique. Blood collected. Flushed with 10 mL NS. 14:47 CBC with Diff Sent. zm 14:47 CMP Sent. zm 14:47 Lipase Sent. zm 14:50 Triage completed. me1 14:50 Arm band placed on Patient placed in an exam room. me1 15:36 CT Abd/Pelvis - IV Contrast Only In Process Unspecified. EDMS 17:[address] [facility]. bd 17:58 Urine collected: clean catch specimen, moiz colored. me1 18:08 pt accepted in transfer to [facility] by Dr Gonzalez, admin approval given by Lucila lopez RN,pt going to 1834. 20:12 Patient transferred, IV remains in place. me1 Administered Medications: 15:21 Drug: NS 0.9% IV 1000 ml IV at 1 bolus Per protocol; 1000 mL bolus Route: IV; Rate: 1 me1 bolus; Site: left antecubital; 19:20 Follow up: Response: No adverse reaction; IV Status: Completed infusion; IV Intake: me1 1000ml 15:21 Drug: morphine IVP or IV 4 mg IVP once over 4 mins Route: IVP; Infused Over: 4 mins; me1 Site: left antecubital; 15:51 Follow up: Response: No adverse reaction; Pain is decreased me1 15:21 Drug: Droperidol IVP 1.25 mg IVP once Route: IVP; Site: left antecubital; me1 15:51 Follow up: Response: No adverse reaction; Nausea is decreased me1 17:52 Drug: Piperacillin-Tazobactam IVPB 3.375 grams IVPB once over 60 mins; (mix in NS 100 me1 mL) Route: IVPB; Infused Over: 60 mins; Site: left antecubital; 18:52 Follow up: Response: No adverse reaction; IV Status: Completed infusion; IV Intake: me1 100ml 20:11 Drug: morphine IVP or IV 4 mg IVP once over 4 mins Route: IVP; Infused Over: 4 mins; me1 Site: left antecubital; 20:11 Follow up: Response: No adverse reaction; Pain is decreased me1 Medication: 14:42 VIS not applicable for this client. me1 Intake: 18:52 IV: 100ml; Total: 100ml. me1 19:20 IV: 1000ml; Total: 1100ml. me1 Outcome: 17:01 ER care complete, transfer ordered by . ec2 20:12 Transferred by ground EMS to [facility], Transfer form completed. me1 X-rays sent w/ patient. 20:12 Condition: stable 20:12 Instructed on discharge instructions, the need for transfer, 20:15 Patient left the ED. me1 Signatures: Dispatcher [employer] EDCaro Mclean Amanda, RN RN ap3 Irina Stiles Michelle, RN RN me1 John Duffy MD MD ec2
--- NOTE | 2024-02-04 17:01 | EDPHYS ---
Physician Documentation [facility] Name: Neftali Aldana Jr Age: 63 yrs Sex: Male : 1960 Arrival Date: 02/04/2024 Time: 14:28 Bed 9 Private MD: ED Physician John Duffy HPI: 02/03 15:18 This 63 yrs old Male presents to ER via EMS with complaints of Abd Pain > 50 ec2 y/o. 15:18 Patient with history of rectal cancer arrives today for evaluation of generalized ec2 abdominal pain. Patient reports constipation, reports that he is having some difficulty with straining. Patient reports some nausea. Reports history of previous radiation and chemotherapy.. Historical: - Allergies: 14:50 Yeast; me1 - PMHx: 14:50 cancer rectum; diabetes mellitus; me1 - PSHx: 14:50 stomach surgery; stomach surgery; stomach surgery by Dr Duvall; me1 - Immunization history:: Adult Immunizations up to date. - Infectious Disease History:: Denies. - Social history:: Smoking status: Patient denies any tobacco usage or history of. ROS: 15:18 Constitutional: as per hpi ec2 Exam: 15:18 Constitutional: GEN: NAD Head: atraumatic Eyes: EOMI Ears: External ears are ec2 normal. CV: regular rate LUNGS: no respiratory distress ABD: non-distended, soft, generally tender, no guarding, nonrigid. SKIN: no evidence of rashes MSK: no evidence of trauma Vital Signs: 14:42 BP 126 / 68; Pulse 67; Resp 16; Temp 98.6; Pulse Ox 98% on R/A; Weight 68.04 kg; Height me1 5 ft. 5 in. ; Pain 10/10; 15:47 BP 137 / 71; Pulse 85; Resp 16; Pulse Ox 100% on R/A; me1 17:00 BP 122 / 74; Pulse 98; Resp 17; Pulse Ox 100% on R/A; me1 18:00 BP 133 / 76; Pulse 99; Resp 18; Pulse Ox 99% on R/A; me1 19:00 BP 122 / 68; Pulse 98; Resp 16; Pulse Ox 98% ; me1 20:00 BP 118 / 65; Pulse 97; Resp 16; Temp 98.2; Pulse Ox 98% on R/A; me1 14:42 Body Mass Index 24.96 (68.04 kg, 165.1 cm) me1 14:42 Pain Scale: Adult me1 MDM: 14:29 Patient medically screened. ec2 15:18 Data reviewed: vital signs. ED course: Patient arrives today for evaluation of ec2 generalized abdominal pain. Examination remarkable for generally tender abdomen. Will obtain lab work, CT imaging, treat the patient's symptoms. Differential clued processes such as small bowel obstruction, constipation, ileus.. 16:46 ED course: CT imaging shows cecum inflammation, possible appendicitis, possible ec2 neoplasm versus appendicitis. Discussed case with surgery, unclear if this is metastatic disease from patient's rectal cancer versus early appendicitis. Given this information, will transfer to colorectal capable facility.. 17:30 ED course: I discussed the case w/ Dr. Garcia, surgery at [facility] who agrees to consult ec2 on pt, will admit to hospitalist. . 17:54 ED course: I discussed case with the hospitalist, at [facility] who agrees accept the patient for transfer. Patient updated of the plan of care and agreeable. Presentation consistent with malignancy versus appendicitis.. 08 14:29 Order name: CBC with Diff; Complete Time: 16:14 ec2 02/03 14:29 Order name: CMP; Complete Time: 16:14 ec2 02/03 14:29 Order name: Lipase; Complete Time: 16:14 ec2 02/03 14:29 Order name: Urinalysis w/ reflexes ec2 02/03 14:29 Order name: CT Abd/Pelvis - IV Contrast Only; Complete Time: 16:14 ec2 02/03 14:29 Order name: IV Saline Lock; Complete Time: 14:46 ec2 02/03 14:29 Order name: Labs collected and sent; Complete Time: 14:47 ec2 Administered Medications: 15:21 Drug: NS 0.9% IV 1000 ml IV at 1 bolus Per protocol; 1000 mL bolus Route: IV; Rate: 1 me1 bolus; Site: left antecubital; 19:20 Follow up: Response: No adverse reaction; IV Status: Completed infusion; IV Intake: me1 1000ml 15:21 Drug: morphine IVP or IV 4 mg IVP once over 4 mins Route: IVP; Infused Over: 4 mins; me1 Site: left antecubital; 15:51 Follow up: Response: No adverse reaction; Pain is decreased me1 15:21 Drug: Droperidol IVP 1.25 mg IVP once Route: IVP; Site: left antecubital; me1 15:51 Follow up: Response: No adverse reaction; Nausea is decreased me1 17:52 Drug: Piperacillin-Tazobactam IVPB 3.375 grams IVPB once over 60 mins; (mix in NS 100 me1 mL) Route: IVPB; Infused Over: 60 mins; Site: left antecubital; 18:52 Follow up: Response: No adverse reaction; IV Status: Completed infusion; IV Intake: me1 100ml 20:11 Drug: morphine IVP or IV 4 mg IVP once over 4 mins Route: IVP; Infused Over: 4 mins; me1 Site: left antecubital; 20:11 Follow up: Response: No adverse reaction; Pain is decreased me1 Disposition Summary: 02/04/24 17:01 Transfer Ordered Notes: Transfer Location: Other Acute Care Facility ec2 Reason: Higher level of care ec2 Condition: Stable ec2 Problem: new ec2 Symptoms: have worsened ec2 Accepting Physician: transferring doc(02/04/24 20:15) me1 Diagnosis - Cecal mass ec2 - Possible Appendicitis ec2 - Lower abdominal pain, unspecified ec2 - Other constipation ec2 Forms: - Medication Reconciliation Form ec2 - SBAR form ec2 Signatures: Dispatcher [employer] Alicia Glass RN RN 1 Leidy Forte RN RN me1 John Duffy MD MD ec2 Corrections: (The following items were deleted from the chart) 20:15 17:01 transferring doc ec2 me1
[2024-02-04] MEDS ORDERED: PIPERACIL/TAZO 3.375 GM VIAL IV ONE (17:48)
[2024-02-04] MEDS ORDERED: NA CHLORIDE 0.9% 100 ML ONE (17:48)
[2024-02-04 18:08] LABS: Specific Gravity > 1.030 (1.005-1.030); Urine Bilirubin NEGATIVE (Negative); Urine Blood Negative (Negative); Urine Clarity Clear (Clear); Urine Color Colorless (Yellow); Urine Glucose 2+ (Negative); Urine Ketones 1+ (Negative); Urine Microscopic Reflex YN NO UMIC; Urine Nitrite NEGATIVE (Negative); Urine Protein NEGATIVE (Negative); Urine Urobilinogen Normal (Normal); Urine pH 5.5 (5.0-7.0)
[2024-02-04 21:42] VITALS: O2SAT 98
[2024-02-04 21:44] VITALS: BP 118/65; TEMP 98.2
== END 2024-02-04 20:15 ==
LOC: ER 14:28
DX: K63.89 Other specified diseases of intestine (principal); K59.09 Other constipation; Z85.048 Personal history of other malignant neoplasm of rectum, rectosigmoid junction, and anus
CPT/HCPCS: 85025; 36415; 81003; 83690; 80053; 74177; Q9967; J2543; J7030

== ENCOUNTER 2024-09-22 17:41 | Emergency (ER) | payer OTHER ==
[2024-09-22 18:11] LABS: Absolute Basophils 0.1 K/uL (0-0.5); Absolute Lymphocytes (CBC) 0.5 K/uL (0.7-4.9); Absolute Monocytes 0.5 K/uL (0.1-1.3); Absolute Neutrophil 6.8 K/uL (1.8-8.0); Basophils % 0.8 % (0-1.3); Eosinophils % 0.3 % (0-4.4); Hematocrit 44.3 % (39.6-49.0); Hemoglobin 15.4 g/dL (13.6-17.9); Lymphocytes % 6.3 % (15.3-44.8); MCHC 34.6 g/dL (32.0-36.0); MCV 92.4 fL (80-100); Monocytes % 6.8 % (3.3-12.3); Neutrophils % 85.8 % (41.7-73.7); Platelets 270 thou/uL (152-406); Red Cell Distribution Width 13.5 % (12.1-15.2)
[2024-09-22 18:24] LABS: PT Prothrombin Time 11.8 SECONDS (10-13.0); PTT, Activated Partial Thromb 24.8 SECONDS (27.2-37.4); Protime INR 1.04
[2024-09-22 18:28] LABS: Anion Gap 9.7 mEq/L (5.0-15.0); Potassium 3.7 mEq/L (3.5-5.1); Troponin High Sensitivity 3.8 pg/mL (<58.9)
--- NOTE | 2024-09-22 19:24 | RAD REPORT ---
EXAMINATION: ONE VIEW CHEST XR CLINICAL INDICATION: Male, 64 years old.,left sided weakness, fall TECHNIQUE: Frontal chest projection is submitted. Examination is limited by patient positioning and t echnique. COMPARISON: 10/18/2022 FINDINGS: The lungs are well inflated and clear. Right chest wall Port-A-Cath with tip at the superior cavoatri al junction. No pneumothorax or sizable effusion. The heart is normal in size. Mediastinal contours are unremarkable. IMPRESSION: No acute intrathoracic abnormalities.
--- NOTE | 2024-09-22 19:40 | ER ---
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 Coronavirus screen: Vaccine status: Patient reports being unvaccinated. Ebola Screen: No symptoms or risks identified at this time. No acute neurological deficit is noted. The patients blood glucose was checked prior to arriving to the hospital and was found to be hyperglycemic. Initial Sepsis Screen: Does the patient meet any 2 criteria? No. Patient's initial sepsis screen is negative. Does the patient have a suspected source of infection? No. Patient's initial sepsis screen is negative. Risk Assessment: Do you want to hurt yourself or someone else? Patient reports no desire to harm self or others. Onset of symptoms was September 22, 2024. 17:56 Method Of Arrival: EMS: [facility] 17:56 Acuity: MIRNA 2 ph Triage Assessment: 18:00 The onset of the patients symptoms was more than six hours ago. General: Appears in no ph apparent distress. comfortable, Behavior is calm, cooperative. Pain: Complains of pain in head and neck. Neuro: Level of Consciousness is awake, alert, obeys commands, Oriented to person, place, time, situation, Launch Check Out are weak on left Moves all extremities. Speech is normal, Facial droop on left, Pupils are PERRLA, Numbness in left arm Reports weakness. Cardiovascular: Capillary refill < 3 seconds in bilateral fingers Patient's skin is warm and dry. Respiratory: Airway is patent Respiratory effort is even, unlabored. Derm: Skin is pink, warm \T\ dry. Stroke Activation: Symptom onset > 6 hours Physician: ED Attending; Name: ; Notified At: ; Arrived At: Physician: Mid-Level Provider; Name: ; Notified At: ; Arrived At: Physician: [not used]; Name: ; Notified At: ; Arrived At: Physician: [not used]; Name: ; Notified At: ; Arrived At: Physician: [not used]; Name: ; Notified At: ; Arrived At: Historical: - Allergies: 18:00 Yeast; ph - PMHx: 18:00 cancer rectum; diabetes mellitus; ph - PSHx: 18:[address] Duvall; ph - Immunization history:: Adult Immunizations unknown. - Infectious Disease History:: Denies. - Social history:: Smoking status: Patient denies any tobacco usage or history of. Screenin:30 [facility] ED Fall Risk Assessment (Adult) History of falling in the last 3 months, ph including since admission Yes- fall prone (multiple falls) (3 pts) Confusion or Disorientation No (0 pts) Intoxicated or Sedated No (0 pts) Impaired Gait Yes (1 pt) Mobility Assist Device Used No (0 pt) Altered Elimination No (0 pt) Score/Fall Risk Level 3 or more points = High Risk Oriented to surroundings, Maintained a safe environment, Hourly rounding (assess needs \T\ fall precautionary measures) done, Used ambulatory aids as needed (educated on \T\ assisted with). Abuse screen: Denies threats or abuse. Denies injuries from another. Nutritional screening: No deficits noted. Tuberculosis screening: No symptoms or risk factors identified. Assessment: 18:03 VAN Scoring:. TNKase (Tenecteplase) Screening: Contraindications: Patient reports onset ph of signs and symptoms of stroke greater than 6 hours ago:. Vital Signs: 17:56 BP 134 / 91; Pulse 85; Resp 18; Temp 97.9; Pulse Ox 96% on R/A; ph 18:29 BP 146 / 62; Pulse 92; Resp 18; Pulse Ox 98% on R/A; ph 19:00 BP 128 / 83; Pulse 81; Resp 18; Pulse Ox 97% ; Pain 0/10; rg5 20:30 BP 117 / 81; Pulse 78; Resp 18; Pulse Ox 96% on R/A; Pain 0/10; rg5 19:00 Pain Scale: Adult rg5 20:30 Pain Scale: Adult rg5 NIH Stroke Scale Scores: 18:03 NIHSS Score: 3 ph 19:30 NIHSS Score: 4 ms3 ED Course: 17:45 Patient arrived in ED. ms3 17:45 Jonnie Baer DO is Attending Physician. ms3 17:50 Radiology exam delayed due to lab results not completed at this time. (BUN/Creatinine) jc4 IV insertion attempt and/or patient not having appropriate IV at this time. 17:55 Olga Hart, RN is Primary Nurse. ph 17:59 Triage completed. ph 18:01 Arm band placed on Patient placed in an exam room, in a wheelchair, on rubber process hand, ph on pulse oximetry. 18:02 Patient has correct armband on for positive identification. Bed in low position. Call ph light in reach. Side rails up X 1. Client placed on continuous cardiac and pulse oximetry monitoring. NIBP monitoring applied. gang knife fish chopper on. Pulse ox on. NIBP on. Door closed. Noise minimized. Warm blanket given. 18:09 CXR XRAY In Process Unspecified. EDMS 19:04 Primary Nurse role handed off by Olga Hart, [place] rv1 19:16 CT Head Angio In Process Unspecified. EDMS 19:16 CT Neck Angio In Process Unspecified. EDMS 19:16 CT Head C Spine In Process Unspecified. EDMS 19:19 Quinn Ching, [place] is Primary Nurse. rg5 19:38 Estefania Gurrola MD is Hospitalizing Provider. ms3 20:23 Initiated transfer with Long at [facility]. rv1 20:33 Doc to Doc with Neurologist. rv1 20:45 Doc to Doc with Hospitalist. rv1 22:08 No provider procedures requiring assistance completed. Patient admitted, IV remains in vc1 place. Administered Medications: 20:09 Not Given (Patient Refused): aspirinchewable tablet 324 mg PO once; 81 mg tablets x 4 rg5 20:39 CANCELLED (Physician Discretion): [id number] mg PO once kb 20:47 Drug: Aspirin PO Chewable Tablet 324 mg PO once; 81 mg tablets x 4 Route: PO; rg5 Medication: 18:02 VIS not applicable for this client. ph Outcome: 19:39 Decision to Hospitalize by Provider. ms3 20:20 ER care complete, transfer ordered by . ms3 22:08 Transferred by ground EMS to [facility], Transfer form completed. vc1 X-rays sent w/ patient. 22:08 Condition: stable 22:08 Instructed on the need for transfer, 22:09 Patient left the ED. vc1 NIH Stroke Scale - NIH Stroke Score Date: 09/22/2024 Time: 18:03 Total Score = 3 10. Dysarthria (speech clarity - read or repeat words) - 0(Normal) 11. Extinction and Inattention (visual/tactile/auditory/spatial/personal) - 0(No abnormality) 1a. Level of Consciousness (LOC) - 0(Alert) 1b. Level of Consciousness (LOC) (Month \T\ Age) - 0(Both) 1c. LOC Commands (Open \T\ Closes Eyes/Letterer) - 0(Both) 2. Best Gaze (Lateral Gaze Paresis) - 0(Normal) 3. Visual Field Loss - 0(No visual loss) 4. Facial Palsy - 1(Minor Paralysis) 5a. Left Arm: Motor (10-second hold) - 1(Drift) 5b. Right Arm: Motor (10-second hold) - 0(No drift) 6a. Left Leg: Motor (5-second hold - always test supine) - 0(No drift) 6b. Right Leg: Motor (5-second hold - always test supine) - 0(No drift) 7. Limb Ataxia (finger/nose \T\ heel/ramirez - test with eyes open) - 0(Absent) 8. Sensory Loss (pinprick arms/legs/face) - 1(Mild to moderate loss) 9. Best Language: Aphasia (description/naming/reading) - 0(No aphasia) Initials: NIH Stroke Scale - NIH Stroke Score Date: 09/22/2024 Time: 19:30 Total Score = 4 10. Dysarthria (speech clarity - read or repeat words) - 0(Normal) 11. Extinction and Inattention (visual/tactile/auditory/spatial/personal) - 0(No abnormality) 1a. Level of Consciousness (LOC) - 0(Alert) 1b. Level of Consciousness (LOC) (Month \T\ Age) - 0(Both) 1c. LOC Commands (Open \T\ Closes Eyes/Letterer) - 0(Both) 2. Best Gaze (Lateral Gaze Paresis) - 0(Normal) 3. Visual Field Loss - 0(No visual loss) 4. Facial Palsy - 2(Partial paralysis) 5a. Left Arm: Motor (10-second hold) - 1(Drift) 5b. Right Arm: Motor (10-second hold) - 0(No drift) 6a. Left Leg: Motor (5-second hold - always test supine) - 1(Drift) 6b. Right Leg: Motor (5-second hold - always test supine) - 0(No drift) 7. Limb Ataxia (finger/nose \T\ heel/ramirez - test with eyes open) - 0(Absent) 8. Sensory Loss (pinprick arms/legs/face) - 0(Normal) 9. Best Language: Aphasia (description/naming/reading) - 0(No aphasia) Initials: ms3 Signatures: Dispatcher [employer] EDOlga Cuevas RN RN ph Jonnie Baer, DO DO ms3 Alicia Orona RN RN vc1 Do Abdi rv1 Quinn Ching RN RN rg5 Jay Jay Borges4 Mary Mcgowan-jerome
--- NOTE | 2024-09-22 19:40 | EDPHYS ---
Physician Documentation [facility] Name: Neftali Aldana Jr Age: 64 yrs Sex: Male : 1960 Arrival Date: 09/22/2024 Time: 17:41 Bed IW10 Private MD: ED Physician Jonnie Baer HPI: 09/22 21:01 This 64 yrs old Male presents to ER via EMS with complaints of Weakness. ms3 21:01 64-year-old male with past medical history of prostate cancer presents to the emergency ms3 department for left-sided deficits and falls x 2. Patient states he awoke yesterday morning with left-sided weakness. Patient denies pain. Patient denies any alleviating or inciting factors. Historical: - Allergies: 18:00 Yeast; ph - PMHx: 18:00 cancer rectum; diabetes mellitus; ph - PSHx: 18:[address] Duvall; ph - Immunization history:: Adult Immunizations unknown. - Infectious Disease History:: Denies. - Social history:: Smoking status: Patient denies any tobacco usage or history of. ROS: 21:01 Constitutional: Negative for fever, and chills. Cardiovascular: Negative for chest ms3 pain, and palpitations. Respiratory: Negative for shortness of breath, cough, wheezing, and pleuritic chest pain, Abdomen/GI: Negative for abdominal pain, nausea, vomiting, diarrhea, and constipation, MS/Extremity: Negative for injury and deformity, 21:01 Neuro: Positive for Left-sided deficits, Exam: 21:01 Constitutional: This is a well developed, well nourished patient who is awake, alert, ms3 and in no acute distress. Cardiovascular: Regular rate and rhythm with a normal S1 and S2. No gallops, murmurs, or rubs. Normal PMI, no JVD. No pulse deficits. Respiratory: Lungs have equal breath sounds bilaterally, clear to auscultation and percussion. No rales, rhonchi or wheezes noted. No increased work of breathing, no retractions or nasal flaring. Abdomen/GI: Soft, non-tender, with normal bowel sounds. No distension or tympany. No guarding or rebound. No evidence of tenderness throughout. Skin: Warm, dry with normal turgor. Normal color with no rashes, no lesions, and no evidence of cellulitis. 21:01 Neuro: Orientation: is normal, to person, place, time \T\ situation. Mentation: is normal, Memory: is normal, Cerebellar function: normal finger to nose testing, heel to ramirez testing is normal, Motor: Drift of left upper and left lower extremity, Sensation: is normal, Gait: not tested. 21:09 ECG was reviewed by the Attending Physician. ms3 Vital Signs: 17:56 BP 134 / 91; Pulse 85; Resp 18; Temp 97.9; Pulse Ox 96% on R/A; ph 18:29 BP 146 / 62; Pulse 92; Resp 18; Pulse Ox 98% on R/A; ph 19:00 BP 128 / 83; Pulse 81; Resp 18; Pulse Ox 97% ; Pain 0/10; rg5 20:30 BP 117 / 81; Pulse 78; Resp 18; Pulse Ox 96% on R/A; Pain 0/10; rg5 19:00 Pain Scale: Adult rg5 20:30 Pain Scale: Adult rg5 NIH Stroke Scale Scores: 18:03 NIHSS Score: 3 ph 19:30 NIHSS Score: 4 ms3 MDM: 17:45 Medical Screening Exam initiated ms3 20:21 ED course: Discussed case with Dr Schumacher and possible dissection vs non-calcified ms3 plaque. 21:01 Data reviewed: vital signs, nurses notes, lab test result(s), EKG, radiologic studies, ms3 and as a result, I will Transfer patient. Consideration of Admission/Observation Patient transferred to [facility] neuro ICU. Management of patient was discussed with the following: Discussed case with [facility] Neurology, Dr Sotelo who would like patient in Neuro ICU. No neuro ICU beds available and discussed case with Dr. Aquino who accepts patient to the emergency department. I considered the following discharge prescriptions or medication management in the emergency department Medications were administered in the Emergency Department. See MAR. Independent interpretation of the following test(s) in the Emergency Department EKG: See my EKG interpretation above. Historians other than the Patient: EMS: [facility]. Counseling: I had a detailed discussion with the patient and/or guardian regarding the historical points, exam findings, and any diagnostic results supporting the discharge/admit diagnosis, lab results, radiology results, the need to transfer to another facility, for higher level of care. ED course: After discussions with Dr. Lawson decision made to transfer patient to higher level of care secondary to possible dissection. Patient was discussed with Dr. Sotelo, neurology at [facility], and he accepts patient. Case was also discussed with the emergency department physician, Dr. Aquino and patient was accepted to the emergency department. Patient has remained in stable condition since arrival to the emergency department. 09/22 17:46 Order name: Basic Metabolic Panel; Complete Time: 18:31 ms3 09/22 17:46 Order name: CBC with Diff; Complete Time: 20:22 ms3 09/22 17:46 Order name: High Sensitivity Troponin; Complete Time: 18:31 ms3 09/22 17:46 Order name: Protime (+inr); Complete Time: 18:31 ms3 09/22 17:46 Order name: Ptt, Activated; Complete Time: 18:31 ms3 09/22 20:18 Order name: CBC Smear Scan; Complete Time: 20:22 EDMS 09/22 17:46 Order name: CT Head Angio; Complete Time: 20:18 ms3 09/22 17:46 Order name: CT Neck Angio; Complete Time: 20:18 ms3 09/22 17:46 Order name: CT Head C Spine; Complete Time: 20:18 ms3 09/22 17:48 Order name: CXR XRAY; Complete Time: 19:27 ms3 09/22 17:46 Order name: EKG; Complete Time: 17:47 ms3 09/22 17:46 Order name: Accucheck; Complete Time: 18:03 ms3 09/22 17:46 Order name: Cardiac monitoring; Complete Time: 18:03 ms3 09/22 17:46 Order name: EKG - Nurse/Tech; Complete Time: 18:49 ms3 09/22 17:46 Order name: IV Saline Lock; Complete Time: 18:03 ms3 09/22 17:46 Order name: Labs collected and sent; Complete Time: 18:03 ms3 09/22 17:46 Order name: NPO; Complete Time: 18:03 ms3 09/22 17:46 Order name: O2 Per Protocol; Complete Time: 18:03 ms3 09/22 17:46 Order name: O2 Sat Monitoring; Complete Time: 18:03 ms3 09/22 17:46 Order name: Stroke Swallow Screen; Complete Time: 19:50 ms3 EC:09 Rate is 88 beats/min. Rhythm is regular. Left axis deviation noted. WI interval is ms3 normal. QRS interval is normal. Clinical impression: NSR w/ Non-specific ST/T Changes. Interpreted by me. Reviewed by me. Administered Medications: 20:09 Not Given (Patient Refused): aspirinchewable tablet 324 mg PO once; 81 mg tablets x 4 rg5 20:39 CANCELLED (Physician Discretion): mg PO once kb 20:47 Drug: Aspirin PO Chewable Tablet 324 mg PO once; 81 mg tablets x 4 Route: PO; rg5 Disposition Summary: 09/22/24 20:20 Transfer Ordered Notes: Transfer Location: [facility] ms3 Reason: Higher level of care ms3 Condition: Stable(09/22/24 20:20) ms3 Problem: new(09/22/24 20:20) ms3 Symptoms: are unchanged(09/22/24 20:20) ms3 Accepting Physician: Dr Aquino(09/22/24 22:09) vc1 Diagnosis - Cerebral infarction due to unspecified occlusion or stenosis of unspecified middle ms3 cerebral artery Forms: - Medication Reconciliation Form ms3 - SBAR form ms3 Critical care time excluding procedures: 21:01 Critical care time: Bedside Care: 45 minutes, Consultation: 10 minutes. Total time: 55 ms3 minutes NIH Stroke Scale - NIH Stroke Score Date: 09/22/2024 Time: 18:03 Total Score = 3 10. Dysarthria (speech clarity - read or repeat words) - 0(Normal) 11. Extinction and Inattention (visual/tactile/auditory/spatial/personal) - 0(No abnormality) 1a. Level of Consciousness (LOC) - 0(Alert) 1b. Level of Consciousness (LOC) (Month \T\ Age) - 0(Both) 1c. LOC Commands (Open \T\ Closes Eyes/Operation Research Analyst) - 0(Both) 2. Best Gaze (Lateral Gaze Paresis) - 0(Normal) 3. Visual Field Loss - 0(No visual loss) 4. Facial Palsy - 1(Minor Paralysis) 5a. Left Arm: Motor (10-second hold) - 1(Drift) 5b. Right Arm: Motor (10-second hold) - 0(No drift) 6a. Left Leg: Motor (5-second hold - always test supine) - 0(No drift) 6b. Right Leg: Motor (5-second hold - always test supine) - 0(No drift) 7. Limb Ataxia (finger/nose \T\ heel/ramirez - test with eyes open) - 0(Absent) 8. Sensory Loss (pinprick arms/legs/face) - 1(Mild to moderate loss) 9. Best Language: Aphasia (description/naming/reading) - 0(No aphasia) Initials: NIH Stroke Scale - NIH Stroke Score Date: 09/22/2024 Time: 19:30 Total Score = 4 10. Dysarthria (speech clarity - read or repeat words) - 0(Normal) 11. Extinction and Inattention (visual/tactile/auditory/spatial/personal) - 0(No abnormality) 1a. Level of Consciousness (LOC) - 0(Alert) 1b. Level of Consciousness (LOC) (Month \T\ Age) - 0(Both) 1c. LOC Commands (Open \T\ Closes Eyes/Operation Research Analyst) - 0(Both) 2. Best Gaze (Lateral Gaze Paresis) - 0(Normal) 3. Visual Field Loss - 0(No visual loss) 4. Facial Palsy - 2(Partial paralysis) 5a. Left Arm: Motor (10-second hold) - 1(Drift) 5b. Right Arm: Motor (10-second hold) - 0(No drift) 6a. Left Leg: Motor (5-second hold - always test supine) - 1(Drift) 6b. Right Leg: Motor (5-second hold - always test supine) - 0(No drift) 7. Limb Ataxia (finger/nose \T\ heel/ramirez - test with eyes open) - 0(Absent) 8. Sensory Loss (pinprick arms/legs/face) - 0(Normal) 9. Best Language: Aphasia (description/naming/reading) - 0(No aphasia) Initials: ms3 Signatures: Dispatcher [employer] Mary Soni, MEDICARE BILLER-C MEDICARE BILLER-Olga Hernandez RN RN Jonnie Baer DO DO ms3 Alicia Orona, RN RN vc1 Quinn Ching, RN RN rg5 Corrections: (The following items were deleted from the chart) 17:48 17:48 Chest Single View+RAD.RAD.BRZ ordered. EDMS EDMS 20:20 19:39 Inpatient Admission ms3 ms3 20:20 19:39 Galileo, Azfar ms3 ms3 20:20 19:39 Telemetry/MedSurg (Inpatient) ms3 ms3 20:20 19:39 Stable ms3 ms3 20:20 19:39 new ms3 ms3 20:20 19:39 are unchanged ms3 ms3 20:20 19:39 Standard ms3 ms3 20:20 19:39 ms3 ms3 20:20 19:39 Cerebral infarction due to unspecified occlusion or stenosis of right ms3 middle cerebral artery ms3 20:39 20:22 Aspirin PO 81 mg PO once ordered. ms3 kb 21:01 20:20 ms3 ms3 22:09 21:01 Dr Aquino ms3 vc1
[2024-09-22] MEDS ORDERED: ASPIRIN 81 MG CHEWABLE TABLET ONE (19:46)
--- NOTE | 2024-09-22 20:12 | RAD REPORT ---
EXAMINATION: CTA HEAD CLINICAL INDICATION: Male, 64 years old. Left sided deficits TECHNIQUE: Axial CT images were obtained through the head after intravenous contrast utilizing angiog raphic protocol with 3D post-processing (maximum intensity projection images, volume rendered images and/or shaded surface rendered images). One or more of the following dose reduction technique s were used: Automated exposure control, adjustment of the mA and/or kV according to patient size, and/or iterative reconstruction. Unless otherwise specified, incidental findings do not require dedic ated imaging follow-up. COMPARISON: Noncontrast head CT of the same day. FINDINGS: ICA: The petrous, cavernous, and supraclinoid segments of the bilateral internal carotid arteries are patent, with relatively diminutive caliber of the right ICA. Moderate atherosclerotic calcifications. ALETHEA: Anterior cerebral arteries are normal bilaterally. The anterior communicating artery is patent. MCA: Middle cerebral arteries are normal on the left. Proximal right MCA M1 occlusion. Reconstitution of the proximal right MCA branches via collateral flow, all demonstrating diminutive caliber. CENA: Posterior cerebral arteries are normal bilaterally. Vertebrobasilar: The vertebral arteries are patent. The basilar artery is normal in appearance. 3D images confirm these findings. IMPRESSION: Proximal right MCA M1 occlusion. Reconstitution of the proximal right MCA branches via collateral carson w, all demonstrating diminutive caliber. Left anterior circulation and posterior circulation vessels appear patent. THIS REPORT CONTAINS FINDINGS THAT MAY BE CRITICAL TO PATIENT CARE. The findings were verbally commun icated via telephone to Jonnie Baer on 09/22/2024 8:07 PM.
--- NOTE | 2024-09-22 20:14 | RAD REPORT ---
EXAM: CT brain without contrast HISTORY: Left sided weakness, left facial droop COMPARISON: None TECHNIQUE: Multiple contiguous axial images were obtained and a CT of the brain without contrast. Sag ittal and coronal reformats were performed. FINDINGS: Motion artifact limits evaluation. No evidence of hydrocephalus, intracranial hemorrhage, or extra-axial fluid collection. Foci of cortical/subcortical hypoattenuation along the right parietal lobe, and a smaller focus in th e right centrum semiovale. Other nonspecific mild deep white matter hypodensities, may suggest sequelae of chronic small vessel ischemic changes. The calvarium is intact. The visualized paranasal sinuses and mastoid air cells are essentially clear . IMPRESSION: Multifocal right parietal cortical/subcortical foci of hypoattenuation, as well as a right centrum se miovale focus of hypoattenuation, suggesting small infarcts of indeterminate age. THIS REPORT CONTAINS FINDINGS THAT MAY BE CRITICAL TO PATIENT CARE. The findings were verbally commun icated via telephone to Jonnie Buffy on 09/22/2024 8:07 PM. EXAM: CT of the cervical spine without contrast HISTORY: Left sided weakness, left facial droop COMPARISON: None TECHNIQUE: Multiple contiguous axial images were obtained in a CT of the cervical spine without contr ast. Sagittal and coronal reformats were performed. FINDINGS: The vertebral bodies demonstrate normal height and alignment. No evidence of acute fracture or subluxation.. Moderate degenerative changes at C5-6 resulting in mild to moderate bilateral neural foraminal narrowing. No prevertebral soft tissue swelling is seen. The posterior facets are well aligned. Normal alignment of the skull base with the cervical spine is seen. The lung apices are unremarkable. IMPRESSION: No evidence of acute osseous abnormality of the cervical spine. Degenerative changes as above.
--- NOTE | 2024-09-22 20:14 | RAD REPORT ---
EXAMINATION: CT Neck Angio CLINICAL INDICATION: Male, 64 years old. [facility] MAIN Left sided deficits Bed Name: DIS2 TECHNIQUE: Axial CT images were obtained from the aortic arch to the skull base after intravenous con trast utilizing angiographic protocol. Multiplanar reformats, as well as 3D post-processing (maximum intensity projection images, volume rendered images and/or shaded surface rendered images) w ere generated and reviewed. One or more of the following dose reduction techniques were used: Automated exposure control, adjustment of the mA and/or kV according to patient size, and/or iterativ e reconstruction. Unless otherwise specified, incidental findings do not require dedicated imaging follow-up. COMPARISON: Noncontrast head CT of the same day. FINDINGS: AORTA: The imaged aortic arch is normal. Normal three-vessel configuration of the arch. CCA: Bilateral predominantly noncalcified atherosclerotic plaque. Crescentic hypoattenuation external to the lumen more pronounced at the right carotid bifurcation. The common carotid arteries are patent and normal in caliber. ICA/ECA: Left internal and external carotid arteries are patent. Focal right ICA origin narrowing wit h luminal diameter measuring 2.4 mm compared to 4.2 mm more distally. Right external carotid arteries patent. VERTEBRAL: The cervical vertebral arteries are patent to the skull base. Vertebral arteries are codom inant. SOFT TISSUE: No significant neck soft tissue abnormalities. The visualized lung apices are clear. 3D images confirm these findings. IMPRESSION: Focal narrowing of the right MCA origin with up to 43% stenosis. Diminutive caliber of the right MCA throughout, which could be chronic, related to noncalcified atherosclerotic plaque, versus sequelae of dissection of indeterminate age. THIS REPORT CONTAINS FINDINGS THAT MAY BE CRITICAL TO PATIENT CARE. The findings were verbally commun icated via telephone to Jonnie Bear on 09/22/2024 8:07 PM. NASCET criteria used to quantify ICA stenosis, with the following grading scheme: Mild 0-49% stenosis Moderate 50-69% stenosis Severe 70-99% stenosis Reference: [place] Symptomatic Carotid Endarterectomy Trial Collaborators; More GARCIA, Regina DE DIOS, Mary Ellen RB, et al. Beneficial effect of carotid endarterectomy in symptomatic patients with high-grade carotid stenosis. N Engl J Med. 1990 15;325(7):445-53.
[2024-09-22 20:18] LABS: Blood Morphology Comment NOT SEEN (NOT SEEN); Platelet Estimate ADEQ; White Blood Cell Scan OK (OK)
[2024-09-22 23:21] VITALS: TEMP 97.9
[2024-09-22 23:25] VITALS: BP 117/81; O2SAT 96
--- NOTE | 2024-09-23 11:46 | EKG ---
Test Date: 2024-09-22 Test Time: 18:39:46 Residential Worker: PH MEASUREMENT RESULTS: Intervals: Rate: 88 LA: 178 QRSD: 106 QT: 358 QTc: 433 [place]: P: 59 LA: 178 QRS: -53 T: 55 INTERPRETIVE STATEMENTS: Normal sinus rhythm Left anterior fascicular block Inferior infarct, age undetermined Abnormal ECG Compared to ECG 11/26/2012 16:27:54 Left anterior fascicular block now present Myocardial infarct finding now present Left-axis deviation no longer present Left ventricular hypertrophy no longer present Electronically Signed On 09-23-24 11:46:00 CDT by Bo Solitario
== END 2024-09-22 22:09 | disposition short-term general hospital (02) ==
LOC: ER 17:41
DX: I63.511 Cerebral infarction due to unspecified occlusion or stenosis of right middle cerebral artery (principal); R29.703 NIHSS score 3; E11.9 Type 2 diabetes mellitus without complications
CPT/HCPCS: 85025; 80048; 36415; 85610; 85730; 84484; 70450; 72125; 70496; 70498; 71045; Q9967; 93005

== ENCOUNTER 2024-09-29 10:56 | Inpatient (IN) | payer OTHER ==
[2024-09-29] MEDS ORDERED: DOCUSATE NA/SENNA CONC 1 TAB PO PRN (19:17)
[2024-09-29 19:38] LABS: Specific Gravity > 1.030 (1.005-1.030); Sqamous Epithelial None Seen /HPF (None Seen); Urine Bacteria None Seen /HPF (<20); Urine Bilirubin NEGATIVE (Negative); Urine Blood Negative (Negative); Urine Clarity Clear (Clear); Urine Color Yellow (Yellow); Urine Culture Reflex Order NOT NEEDED; Urine Glucose 4+ (Negative); Urine Ketones 1+ (Negative); Urine Microscopic Reflex YN ORDER UMIC; Urine Mucus Slight /HPF (None Seen); Urine Nitrite NEGATIVE (Negative); Urine Protein TRACE (Negative); Urine RBC <5 /HPF (None Seen); Urine Urobilinogen 1+ (Normal); Urine WBC <5 /HPF (<5)
[2024-09-29] MEDS: INSULIN REGULAR (HUMAN) 100 UNIT/ML SQ SCH (20:40)
[2024-09-29] MEDS: APIXABAN 2.5 MG TABLET PO SCH (20:40)
[2024-09-29] MEDS: ATORVASTATIN 80 MG TAB PO SCH (20:40)
[2024-09-29] MEDS: ROPINIROLE HCL 0.25 MG TAB PO SCH (20:40)
[2024-09-29] MEDS: MELATONIN 3 MG TABLET PO PRN (20:40)
[2024-09-29] MEDS: DULOXETINE 20 MG CAP PO SCH (20:40)
[2024-09-29] MEDS: DOCUSATE NA/SENNA CONC 1 TAB PO SCH (21:06)
[2024-09-30 06:20] LABS: Absolute Basophils 0.1 K/uL (0-0.5); Absolute Eosinophils 0.1 K/uL (0-0.5); Absolute Lymphocytes (CBC) 0.9 K/uL (0.7-4.9); Absolute Monocytes 0.7 K/uL (0.1-1.3); Absolute Neutrophil 4.9 K/uL (1.8-8.0); Basophils % 0.8 % (0-1.3); Eosinophils % 1.8 % (0-4.4); Hematocrit 39.4 % (39.6-49.0); Hemoglobin 13.8 g/dL (13.6-17.9); Lymphocytes % 13.4 % (15.3-44.8); MCH 32.3 pg (27.0-35.0); MCHC 35.1 g/dL (32.0-36.0); MCV 92.2 fL (80-100); MPV 7.5 fL (7.6-11.3); Monocytes % 10.8 % (3.3-12.3); Neutrophils % 73.2 % (41.7-73.7); Nucleated Red Blood Cells % 0.1 % (0-0); Platelets 266 thou/uL (152-406); RBC Red Blood Cell Count 4.27 M/uL (4.33-5.43)
[2024-09-30 06:43] LABS: Albumin 3.4 g/dL (3.4-5.0); Anion Gap 9.1 mEq/L (5.0-15.0); Magnesium 2.2 mg/dL (1.6-2.4); Potassium 4.1 mEq/L (3.5-5.1); Prealbumin 18.5 mg/dL (20-40)
[2024-09-30] MEDS: CRANBERRY FRUIT EXTRACT 425 MG CAPSULE PO SCH (08:39)
[2024-09-30] MEDS: ACETAMINOPHEN 500 MG TAB PO PRN (08:39)
[2024-09-30] MEDS: ASPIRIN 81 MG CHEWABLE TABLET PO SCH (08:39)
[2024-09-30] MEDS: glipiZIDE 5 MG TAB PO SCH (08:40)
--- NOTE | 2024-09-30 16:53 | HP ---
Date of Admission: 09/29/2024 Time: 1:10 p.m. Chief Complaint: Stroke involving left body. History Of Present Illness: Mr. Aldana is a 64-year-old patient with diabetes mellitus, gastroesophag eal reflux disease, rectal cancer, treated with chemotherapy with planned surgery on October 29, who was living alone independently when he developed sudden onset left lower extremity weakness resulting in a fall last week . He did not immediately seek medical attention. The following day had mor e weakness in the left side arm included and eventually around 3 days after onset of symptoms, he was seen at [facility] at the emergency department. At that point, [facility] thrombolysis or intra-arterial thrombectomy. CT angiogram of his head and n lise revealed a right MCA M1 occlusion with right parietal centrum semiovale and cortical areas of res tricted diffusion consistent with acute infarcts. He received dual antiplatelet therapy including as pirin, Plavix, high-dose statin, permissive hypertension. His diabetes mellitus was aggressively add ressed and received an insulin sliding scale. The rectal cancer at this point will not be addressed until he is out of the acute phase of his stroke. It is noted on the MRI that identifies multiple st rokes as noted. He had a transthoracic echocardiogram, bubble study showing no shunting or intracard iac thrombus. Ejection fraction was normal. Subsequent hospital course complicated by significant p ain in the left lower extremity, which is mostly now immobilized by his stroke and especially in the hip. Does have difficulty sleeping in bed at night. Says sometimes his pain would make it difficult for him to relax in bed. He was evaluated by the therapy service and was able to ambulate distances of about 150 feet with short burst of 20 feet with a rolling walker, but required up to maximum assi stance due to the knee on the left buckling and him being unable to bear weight on that weak side. F urther he had significant fatigue, tendency to drift to the left side, and to drag the left foot. Di d require maximal assistance for dressing upper and lower body and had this significant dysphagia, le ft-sided neglect, difficulty with his swallowing. He was evaluated by Speech Therapy and put on a so ft bite-sized diet with small amounts of food repeated swallows and to continue with aggressive speec h therapy to minimize his risk of significant aspiration. It is noted that per the patient's sister, she recommends he possibly has undiagnosed Asperger's syndrome and has a few spoken words when he co mmunicates. The patient himself did report he played guitar and he was active and would like to get back to his lifestyle. He is now admitted to the inpatient rehabilitation unit to help him return to his prior level of functioning and reduce his risk of rehospitalization. Admission or discharge to a lower level facility such as fdc or home with likely result in him not thriving but wor sening including potential for falls, fractures, infection such as pneumonia. He is therefore admitt ed to the inpatient rehabilitation unit. Past Medical History: As noted above. Diabetes mellitus, GERD, history of rectal cancer to be treat ed surgically next month. He has cataract extraction, colonoscopy, hiatal hernia repair laparoscopic ally and appendectomy. Allergies: NONSTEROIDAL ANTI-INFLAMMATORY MEDICATIONS, WHICH ARE NOTED IN HIS ALLERGIES. HOWEVER, T HE PATIENT HAS BEEN ON ASPIRIN SINCE HIS STROKE AND NO APPARENT ALLERGIC REACTIONS. ALSO LISTED JESSICA PENTIN AN ALLERGY. Medications: Tylenol 500 mg every 4 hours as needed, Eliquis 2.5 mg twice daily, aspirin 81 mg daily , Lipitor 80 mg at bedtime, Cymbalta 20 mg at bedtime, Glucerna 237 mL twice daily, glipizide 5 mg at breakfast, lidocaine patch apply topically daily to left hip, melatonin 3 mg at bedtime, Requip 0.5 mg at bedtime, Senokot-S one tab twice daily. Laboratory Studies: White blood cell count is 6.7, hemoglobin 13.8, platelets 266. Sodium 138, pota ssium 4.1, chloride 107, carbon dioxide 26, BUN 17, creatinine 0.85, glucose ranged from 125 to 157. Hemoglobin A1c is pending. Calcium 9.1, magnesium 2.2, albumin 3.4, prealbumin 18.5. Urinalysis, s pecific gravity greater than 1.03, glucose 4+, ketones 1+, urobilinogen 1+, trace protein, otherwise unremarkable. X-ray Imaging: MRI of the brain did show multiple scattered acute infarcts in the right MCA territor y and chronic small volume infarct in the left cerebral hemisphere. A transthoracic echocardiogram s howed normal ejection fraction. No thrombus. No [id number] shunt. Social History: No alcohol, tobacco, or IV drug use. Current Level Of Functioning: He is independent with eating, setup assistance for grooming, maximum assistance for bathing, mod assist for upper body dressing, maximal assistance for lower body dressin g, dependent for toileting, for transfers from bed, chair, wheelchair at moderate assistance level. Ambulation, he did 150 feet with maximal assistance. Review of Systems: He does report some difficulty resting especially as he tries to go to bed because of pain in the lef t hip area. Some difficulty with the foot of the bed. The bed stop he says is somewhat irritating a s he tries to lie down in bed at night. Will attempt to have pillows to offload the feet for him. Physical Examination: Vital Signs: Blood pressure is 127/76, pulse 77, respiratory rate 16, temperature 97.9, oxygen satur ation 96%, weight 159 pounds, height 5 feet 5 inches, BMI 26.5. General: Mr. Aldana is sitting in a chair beside the bed. HEENT: He appears normocephalic. He does have a lindsay and somewhat disheveled, but otherwise normoc ephalic. His left face shows no obvious facial droop and he does have fair excursions on smiling. H is left upper extremity at the shoulder is around 1/5. No appreciable movement seen in his left delt oid, biceps, in his finger flexion extension. He is able to subtly pronate the left upper extremity, otherwise zero movement noted. In his left lower extremity proximally and distally no significant m ovement noted around zero. On his right side, he has no restrictions in terms of movement of upper a nd lower extremities and his vocalization sounds do appear adequate. Rehab And Medical Assessment And Plan: Mr. Aldana is a 64-year-old patient admitted to the inpatient rehabilitation unit with impairment category 01 stroke. His impairment group code is 01.1 left body involvement, right brain. Etiologic Diagnosis: Right MCA occlusion. Comorbidities: Include diabetes mellitus, gastroesophageal reflux disease. He has rectal cancer and chemo, with scheduled surgery next month. Plan: He will have physical, occupational, and speech therapy 3.5 hours, 5 of 7 days. We will toshia nue with Eliquis 2.5 mg twice daily for DVT prophylaxis, aspirin 81 mg daily for stroke risk reductio n, Lipitor for dyslipidemia. Does have duloxetine for depression and neuropathic pain. He has glipi zide 5 mg at breakfast for diabetes mellitus. He has Requip for restless legs, Senokot-S for constip ation, melatonin for insomnia, lidocaine patch on board. Going to have physical, occupational, speec h therapy for 3.5 hours, 5 of 7 days. Comorbidities That Are Impacting Rehabilitation: Although the patient did not fully endorse features of depression, he does appear to have some depression. He is on the Cymbalta, may make an adjustmen t to the dosage depending on his response as he begins to do therapy. He wants to return to his life style, which was unlimited and was instructed that it would perhaps take a while and he should work v marilee hard to achieve that and he will be encouraged on a daily basis. Medication adjustments will be made including again the antidepressant medications if need be. Rehab Specific Plan: Mr. Aldana will have 3.5 hours, 5 of 7 days of physical, occupational, speech th erapy to help him improve his ability to transfer from a bed even with a sliding board to a wheelchai r, perhaps to stand with a platform walker, to be able to mobilize more than household distances arou nd the unit to be 250 feet, to go up and down at least 10 steps with right-sided handrail, to go on a nd off the toilet with a sliding board to go in and out of a tub shower as well as a walk-in shower, how to utilize a bench, utilize the wands and assistive devices to minimize his risk of falling and i njury. He will work with speech pathology to improve his ability to protect his airway to adjust the proper consistency of his meals to minimize the risk of aspiration. Also, incentive spirometry to h elp him recover his respiratory status back towards normal. Mr. Aldana had good understanding of the process of admission to the inpatient rehabilitation unit, ho w he will benefit from physical, occupational and speech therapy. He will have 24 hours a day, 7 day s a week skilled rehabilitation nursing, daily physician evaluation and management, and social servic es evaluation and management for discharge planning, home equipment, and to follow up after discharge with more therapy. Follow up with Neurology and primary care physician. If need be, additional hel p from the hospitalist service will be sought. Barriers To Discharge: Mr. Aldana lives alone and if he is to go back home in his current state, he i s really unable to manage and may require longer stay such as a fdc and that may be carlos celis at the time appointed depending on how much time he is available in inpatient rehabilitation. Hi s length of time will likely be longer than 3 weeks as his stroke is very dense and very difficult to improve significantly. However, if he works hard, he may be able to be functional with mostly the r ight side. Length Of Stay: Perhaps at least 3 weeks. Disposition: Expected to be able to go back to his living facility with help from my continued thera py and if there are family available, those will be encouraged to be helpful. Prognosis: Fair. Code Status: Full code. Rehab Specific Goals: To become independent with transfers from bed to toilet to shower on and off. In and out of wheelchair and walking with a platform walker on the left side and perhaps a knee brac e on the left and ankle-foot orthosis also on the left side. To be able to perform upper and lower body dressing, as independently as possible and don and doff fo otwear. To be mindful of safety awareness and minimize his risk of falling and these goals will be constantly reviewed with Mr. Aldana for his clear understanding. By signing this document, I acknowledge I personally performed a full physical examination on Mr. Stacey long no later than 24 hours after his admission to the inpatient rehabilitation unit and determined deepak t he is able to tolerate the above course of treatment at an intensive level for reasonable period of time. A detailed individualized plan of care for him will be completed by hospital day 4 based on t he preadmission screen, history and physical and therapy evaluations. SCOOTER/ADALGISA Voice ID: [id number]
[2024-09-30] MEDS: GLUCERNA SHAKE 237 ML CAN PO SCH (19:46)
--- NOTE | 2024-09-30 21:11 | RAD REPORT ---
EXAM: XR LEFT HAND HISTORY: Pain. r/o middle finger fracture COMPARISON: None TECHNIQUE: Multiple projections of the left hand submitted. FINDINGS: Soft tissue swelling affects the third finger.. No acute fracture seen.
[2024-10-01] MEDS: LIDOCAINE 4% PATCH TOP SCH (08:06)
--- NOTE | 2024-10-01 13:30 | P.RH.PN ---
Estimated Length of Stay: 23 Expected Discharge Date: 10/20/24 Discharge Disposition Plan: Home Family Support: Yes Nursing Home Goal: Mobility, Transfers, Self Care Vital Signs: Last Vital Signs Temp 97.5 F 10/01/24 08:00 Pulse 68 10/01/24 08:00 Resp 16 10/01/24 08:00 BP 132/62 10/01/24 08:00 Pulse Ox 98 10/01/24 08:00 Laboratory: Laboratory Last Values WBC 6.70 thou/uL (4.3-10.9) 09/30/24 06:01 RBC 4.27 M/uL (4.33-5.43) L 09/30/24 06:01 Hgb 13.8 g/dL (13.6-17.9) 09/30/24 06:01 Hct 39.4 % (39.6-49.0) L 09/30/24 06:01 MCV 92.2 fL (80-100) 09/30/24 06:01 MCH 32.3 pg (27.0-35.0) 09/30/24 06:01 MCHC 35.1 g/dL (32.0-36.0) 09/30/24 06:01 RDW 13.0 % (12.1-15.2) 09/30/24 06:01 Plt Count 266 thou/uL (152-406) 09/30/24 06:01 MPV 7.5 fL (7.6-11.3) L 09/30/24 06:01 Neutrophils % 73.2 % (41.7-73.7) 09/30/24 06:01 Lymphocytes % 13.4 % (15.3-44.8) L 09/30/24 06:01 Monocytes % 10.8 % (3.3-12.3) 09/30/24 06:01 Eosinophils % 1.8 % (0-4.4) 09/30/24 06:01 Basophils % 0.8 % (0-1.3) 09/30/24 06:01 Absolute Neutrophils 4.9 K/uL (1.8-8.0) 09/30/24 06:01 Absolute Lymphocytes 0.9 K/uL (0.7-4.9) 09/30/24 06:01 Absolute Monocytes 0.7 K/uL (0.1-1.3) 09/30/24 06:01 Absolute Eosinophils 0.1 K/uL (0-0.5) 09/30/24 06:01 Absolute Basophils 0.1 K/uL (0-0.5) 09/30/24 06:01 Sodium 138 mEq/L (136-145) 09/30/24 06:01 Potassium 4.1 mEq/L (3.5-5.1) 09/30/24 06:01 Chloride 107 mEq/L (98-107) 09/30/24 06:01 Carbon Dioxide 26 mEq/L (21-32) 09/30/24 06:01 Anion Gap 9.1 mEq/L (5.0-15.0) 09/30/24 06:01 BUN 17 mg/dL (7-18) 09/30/24 06:01 Creatinine 0.85 mg/dL (0.70-1.30) 09/30/24 06:01 Est GFR (CKD-EPI) 98 ml/min (=/>90) 09/30/24 06:01 Glucose 156 mg/dL (74-106) H 09/30/24 06:01 POC Glucose 161 mg/dL (65-120) H 10/01/24 11:22 Hemoglobin A1c 7.5 % (4.2-6.3) H 09/30/24 06:01 Calcium 9.1 mg/dL (8.5-10.1) 09/30/24 06:01 Magnesium 2.2 mg/dL (1.6-2.4) 09/30/24 06:01 Albumin 3.4 g/dL (3.4-5.0) 09/30/24 06:01 Prealbumin 18.5 mg/dL (20-40) L 09/30/24 06:01 Urine Color Yellow (Yellow) 09/29/24 19:00 Urine Clarity Clear (Clear) 09/29/24 19:00 Urine pH 6.0 (5.0-7.0) 09/29/24 19:00 Ur Specific [place] > 1.030 (1.005-1.030) H 09/29/24 19:00 Glucose (UA)(Auto) 4+ (Negative) H 09/29/24 19:00 Urine Ketones 1+ (Negative) H 09/29/24 19:00 Urine Blood Negative (Negative) 09/29/24 19:00 Urine Nitrite Negative (Negative) 09/29/24 19:00 Urine Bilirubin Negative (Negative) 09/29/24 19:00 Urine Urobilinogen 1+ (Normal) H 09/29/24 19:00 Ur Leukocyte Esterase Negative Shantanu/uL (Negative) 09/29/24 19:00 Urine RBC <5 /HPF (None Seen) 09/29/24 19:00 Urine WBC <5 /HPF (<5) 09/29/24 19:00 Ur Squamous Epith Cells None seen /HPF (None Seen) 09/29/24 19:00 U Non-Squamous Epi Cells <5 /HPF (None Seen) 09/29/24 19:00 Urine Bacteria None seen /HPF (<20) 09/29/24 19:00 Urine Mucus Slight /HPF (None Seen) 09/29/24 19:00 Urine Culture Reflexed Not needed 09/29/24 19:00 Urine Total Protein Trace (Negative) H 09/29/24 19:00 Weight: 159 lb Closed Surgical Incision Present: Yes Physician Update: Labs reviewed and are stable. Impulsive and easily distracted with occupational therapy. Left sided neglect. BIMS 14, MOCA 24, decreased attention, delayed recall. Dependent toileting, mod assit showers and lower body dressing. Very poor standing balance and poor trunk control. Mod assist with lower body dressing. Max assist transfers, 2' in parallel bars, bed mobility also max. Summary: Patient's care plan and halfway goals have been reviewed and revised as necessary. Please see the Rehabilitation Signature page for all necessary signatures.
[2024-10-04] MEDS ORDERED: TRAZODONE 50 MG TABLET PO PRN (00:50)
[2024-10-04] MEDS: SIMETHICONE 80 MG CHEWABLE TAB PO PRN (00:56)
[2024-10-04] MEDS ORDERED: FAMOTIDINE 20 MG TAB PO SCH (13:51)
--- NOTE | 2024-10-04 19:59 | PN ---
Date of Progress Note: 10/04/2024 Time Of Service: 1:20 p.m. Subjective: Mr. Aldana is lying in bed. He is in mild pain from the left shoulder which has decrease d tone and he has a dense paresis of the left upper and lower extremity. He has Vidal wrap on the left shoulder with an attempt to pull the left shoulder inwards. He was advised that the shoulder brace will be better and attempt will be made to secure that. Still he was able to move his left forearm a cross his abdomen while lying in bed and that is 2/5 with gravity eliminated. He has no sharepoint developer strengt h as of yet, in the left lower extremity 0/5 noted there. Objective: Again, mild pain in the left shoulder and left leg. He will have the left heel offloaded to reduce the risk of decubital ulcers. Otherwise, eating, bowel movements, all those are well cont rolled. Sleeping has no complications or issues. Physical Examination: Vital Signs: Blood pressure 141/78, pulse 65, respiratory rate 18, temperature 97.2, oxygen saturati on 99%. Weight 159 pounds, height 5 feet 5 inches, BMI 26.5. General: Again, Mr. Aldana is lying in bed, decrease in the left nasolabial fold. Extremities: He has dense paresis of left upper extremity around 2/5 at the biceps and the left lowe r extremity 0/5. Right side, no new deficits appreciated on that side. Laboratory Studies: White blood cell count 6.7, hemoglobin of 13.8, platelets 266. His glucose rang ed from 94 to 188. X-ray/imaging: No new x-rays or imaging. Did have hand x-ray as noted way back on the , that st udy was on the left hand where there is a soft tissue swelling. No fracture identified. Medications: Tylenol 500 mg every 4 hours as needed, Eliquis 2.5 mg twice daily, aspirin 81 mg daily , Lipitor 80 mg at bedtime, duloxetine 20 mg daily, Glucerna 237 mL twice daily, he has glipizide 5 m g at breakfast, lidocaine patch apply topically daily, melatonin 3 mg at bedtime, Requip 0.5 mg at be dtime, Senokot-S 1 tablet twice daily, simethicone 80 mg every 6 hours, and trazodone 50 mg at bedtim e. Progress Made With Physical, Occupational, And Speech Therapy: With speech therapy today, he did wor k to pay attention to the left visual field. He was able to do so for 10 items with 100% accuracy. He said that the speech pathologist was not able to fool him today. There were 3 of 4 unrelated pict ures recalled after 5 minutes on the first attempt and then 4 of 4 after 5 minutes on a second attemp t after 10 minutes. Organizational thinking used for word retrieval tasks on letter criteria with 10 0% accuracy. He mobilized a wheelchair 250 feet twice with standby assistance, not yet able to ambul ate because of significant weakness of the left lower extremity, required minimum to moderate assista nce to get a wheelchair away from the wall once it was stuck onto the wall. He was noted to be very fatigued at the end of the therapy session. With occupational therapy, he required maximal assistanc e for lower body dressing and toileting. Verbal cues required as he was able to put a sock on with a sock aid. Assessment: Mr. Aldana is a 64-year-old patient with a significant right MCA stroke producing dense p aresis of the left upper and lower extremity. He is just beginning to have some return of strength a t the left biceps, still around 2/5, otherwise 0 to 5 in the left upper and lower extremity. He does have some pain, likely strain on the brachial plexus on the left due to loss of tone. We will have shoulder brace put in place on that area. He otherwise is showing fair mood. We will observe for de pression and make adjustments to the Cymbalta which is 20 mg at bedtime. Blood sugars are fairly wel l controlled. He is covered for DVT prophylaxis and stroke risk. Also has melatonin for insomnia, s imethicone for abdominal gas pain, and stool softener on board. He has Requip for restless legs. Plan: He will continue with physical, occupational, and speech therapy 3.5 hours, 5 of 7 days. Cont inue with his list of comorbid condition medications. 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 He wants to be abl e to get back to playing his guitar. Encouraged the patient to get the guitar bring it in and try to use the right arm and left arm as much as possible to return towards a prior level of functioning. SCOOTER/ADALGISA Voice ID: [id number] Report ID: [id number]
--- NOTE | 2024-10-05 14:32 | PN ---
Date of Progress Note: 10/05/2024 Time Of Service: 1:10 p.m. Subjective: Mr. Aldana is sitting in a chair in his room. He is making some progress with recovery o f strength in the left upper extremity. He is able to move the left biceps, moving the forearm again st gravity while sitting in a chair up towards his chest area at least 2 to 3/5, much more than he osuna d yesterday, which he was able to do when lying and in his initial visit when he was not able to move the left arm at all. His left leg shows no significant improvement in terms of recovery of strength or coordination. He does report some mild spasming in the left upper and lower extremity and some p ain in the left shoulder where there is a patch placed, but the patch tends to be dislodged as he roque nged his clothes and he will also have a brace pulling the left shoulder inward to reduce the risk of dangling and pain. Review of Systems: Again, the pain is noted in the left shoulder, some spasming in the left upper extremity. Otherwise, denies any symptoms consistent with depression, anxiety, or stress despite his significant deficits from his right MCA stroke. Physical Examination: Vital Signs: Blood pressure 128/71, pulse 63, respiratory rate 18, temperature 97.8, oxygen saturati on 95%. General: Again, Mr. Aldana is sitting in a chair. HEENT: He is normocephalic, atraumatic. Does have decreased left nasolabial fold, significant weakn ess in the upper extremity with slightly improved very little extension of the left arm. There is so me around 2/5 biceps and lower extremity 0/5 on the right and 5/5 upper and lower extremities. Laboratory Studies: Blood sugars ranged 129 to 176. X-ray/imaging: No new x-rays or imaging. Medications: Again, he has a pain patch on board, aspirin and Eliquis for stroke and DVT risk reduct ion, Lipitor for dyslipidemia. He has diabetes addressed with Glucotrol. He has a mild sliding scal e insulin. He has magnesium oxide added for muscle spasms, Requip also for restless legs syndrome, M ylicon for gas issues, Desyrel for insomnia, Senokot for constipation. Progress Made With Physical And Occupational Therapy: With physical therapy, he was able to do sitti ng balance exercises while using the right upper extremity on a tray table for about 10 minutes. Sit -to-stand, he did 10 repetitions from bed to rolling walker and had worked to put his hand in the pro per place. Did have some relaxation and contraction techniques taught. With occupational therapy, adriana oderate to maximal assistance for bed mobilization with head of bed elevated. Did have pain in the s houlders and rated at 4/10 and did perform upper body dressing and washing his face with minimum assi stance. Maximum assistance for his bathroom activities due to impaired sitting balance and poor ray ding balance for clothing management. He worked with speech today and he did have improvement in att ending to the left visual field. He has 100% accuracy and 10 items per page were identified in the l eft visual field accurately, 3 of 4 unrelated pictures were recalled after 5 minutes and then 4 of 4 after another 5 minutes on a second attempt and also 10 minutes later on the third attempt, could rec all the pictures. His organizational thinking skills were used for word retrieval tasks based on let ter criteria with 100% accuracy. Assessment: Mr. Aldana is a 64-year-old patient in the rehabilitation unit with a right MCA occlusion , dense paresis of left upper and lower extremity showing some improvement in the ability to move his left arm towards the face, 0 movement yet in the left hand, 0 movement yet in the left lower extremi ty. He is however working with the right side to do improvements in his transfers, mobilization, and dressing upper and lower body and donning and doffing footwear and performing his morning evolutions and activities of daily living, but still has a long way to go to be able to become independent. Plan: He will have physical, occupational, and speech therapy continued 3.5 hours, 5 of 7 days. His comorbidities do include chronic constipation which is addressed. He has restless legs syndrome, mi ld malnutrition, mild anemia. He has diabetes mellitus and he is on duloxetine for depression. He d oes not however currently endorse active features of depression, has Lipitor for dyslipidemia, aspiri n for stroke risk reduction. He will continue with all of his medications. In terms of his discharg e, plan is for him to go home, however, if he is unable to safely transfer which will include sliding board transfer, [id number], he may have to go to a shelter facility time to have more time to improve and be able to return home. However, the anticipation is for him to go home from [facility]. SCOOTER/ADALGISA Voice ID: [id number] Report ID: [id number]
[2024-10-05] MEDS: MAGNESIUM OXIDE 400 MG TAB PO SCH (19:18)
[2024-10-06] MEDS: LIDOCAINE 4% PATCH TOP SCH (08:33)
[2024-10-07 05:51] LABS: Absolute Eosinophils 0.1 K/uL (0-0.5); Absolute Lymphocytes (CBC) 0.9 K/uL (0.7-4.9); Absolute Monocytes 0.7 K/uL (0.1-1.3); Absolute Neutrophil 5.3 K/uL (1.8-8.0); Basophils % 0.3 % (0-1.3); Eosinophils % 1.8 % (0-4.4); Hemoglobin 13.5 g/dL (13.6-17.9); Lymphocytes % 12.8 % (15.3-44.8); MCH 32.5 pg (27.0-35.0); MCHC 35.5 g/dL (32.0-36.0); MCV 91.7 fL (80-100); Monocytes % 10.2 % (3.3-12.3); Neutrophils % 74.9 % (41.7-73.7); Nucleated Red Blood Cells % 0.1 % (0-0); Platelets 289 thou/uL (152-406); RBC Red Blood Cell Count 4.14 M/uL (4.33-5.43); Red Cell Distribution Width 13.3 % (12.1-15.2)
[2024-10-07 06:14] LABS: Albumin 3.1 g/dL (3.4-5.0); Anion Gap 6.3 mEq/L (5.0-15.0); Magnesium 2.3 mg/dL (1.6-2.4); Potassium 4.3 mEq/L (3.5-5.1); Prealbumin 16.6 mg/dL (20-40)
--- NOTE | 2024-10-07 19:14 | PN ---
Date of Progress Note: 10/07/2024 Time Of Service: 1:20 p.m. Subjective: Mr. Aldana is lying in his room. He is attempting to use his guitar. He has much diffic ulty as his left hand is completely densely paretic with no functional movement, perhaps the shoulder is around 1/5, but 0 of the hand of the left, the biceps, triceps perhaps around 1-2 in the biceps, but 0 in hand. He is using his right hand fully, which is non-affected side and he is right-hand dom inant. He did make multiple attempts to try to play the guitar and is trying to use the hand on both cords to strum the guitar. Objective: No reports of fevers or chills and nausea, vomiting. No myalgias, arthralgias, or rash o r psychiatric issues, which is possible given the patient's significant neurological deficit. Physical Examination: Vital Signs: Blood pressure 134/64, pulse 61, respiratory rate 18, temperature 97.9, O2 saturation 9 9%, weight 150 pounds, height 5 feet 5 inches. BMI 25. General: Mr. Aldana is lying in bed. He is in good spirits. HEENT: He is normocephalic, atraumatic. Extremities: He does have again dense paresis of left upper more than lower extremity. Right hand f ully involved and no cyanosis or clubbing noted. Laboratory Studies: White blood cell count 7.0, hemoglobin 13.5, platelets 289. Sodium 137, potassi um 4.3, chloride 106, carbon dioxide is 29, BUN 17, creatinine 0.78, glucose ranged from 105 to 171, calcium 9.0, magnesium 2.3, albumin 3.1, prealbumin 16.6. X-ray/imaging: No new x-rays or imaging done. Medications: Medications have been reviewed and are unchanged except he has a lidocaine patch, 2 pat ches on the left shoulder. He also has magnesium oxide for muscle spasms. He has Mylicon for gas an d bloating. He has trazodone for insomnia. Progress Made With Physical, Occupational, And Speech Therapy: With physical therapy, completed mult iple [id number] transfers with contact guard to minimum assistance, stand pivot transfers done with minimum assistance. He ambulated 30 feet twice with a left platform walker with moderate assistance twice. He was able to manage stairs. He did 1 step 3 times requiring maximum assistance with a rig ht-sided handrail and the physical therapist was bracing his left knee to prevent it from buckling. He also did an additional 10 steps placing a right foot on a 4-inch step and the therapist blocked th e knee from buckling again. With occupational therapy, bed mobility required moderate assistance. H e was at minimum assistance for toileting and showering. Contact guard assistance also for his trans fers. He did show some improvement in dynamic and static standing and sitting balance. Did work on safety awareness with Speech. His left visual field, he is able to demonstrate 70% accuracy identify ing objects. Details of a picture were described from memory after 5 minutes with 100% accuracy and no cues. A divided attention task was completed with 85% accuracy with cues. Assessment: Mr. Aldana is a 64-year-old patient admitted to rehabilitation unit with a significant ri ght MCA stroke producing very dense paresis of his left upper and lower extremity. He has preserved cognition, communication and swallowing. He is in fair mood, but perhaps have some features of depre ssion, although not quite admitting. He did make attempts to play guitar and does appear somewhat fr ustrated as he was trying to do so with the left hand not working. His comorbidities include restles s legs, insomnia, diabetes, dyslipidemia, and of course some muscle spasms and pain on the left side. Plan: We will continue with physical, occupational, and speech therapy 3.5 hours, 5 to 7 days. Cont inue with medications to help with his mood. He has Cymbalta on board, Lipitor for dyslipidemia, asp irin for stroke risk reduction, Eliquis for DVT and stroke risk reduction, glipizide for his diabetes mellitus. Continue Requip for restless legs, Senokot for stool softening, Mylicon for gas, and traz odone for insomnia. LB/MODL Voice ID: [id number] Report ID: [id number]
--- NOTE | 2024-10-08 13:22 | P.RH.PN ---
Estimated Length of Stay: 23 Expected Discharge Date: 10/20/24 Discharge Disposition Plan: Home Family Support: Yes Nursing Home Goal: Mobility, Transfers, Self Care Vital Signs: Last Vital Signs Temp 98.0 F 10/08/24 07:35 Pulse 64 10/08/24 07:35 Resp 18 10/08/24 07:35 BP 132/74 10/08/24 07:35 Pulse Ox 98 10/08/24 07:35 Laboratory: Laboratory Last Values WBC 7.00 thou/uL (4.3-10.9) 10/07/24 05:28 RBC 4.14 M/uL (4.33-5.43) L 10/07/24 05:28 Hgb 13.5 g/dL (13.6-17.9) L 10/07/24 05:28 Hct 38.0 % (39.6-49.0) L 10/07/24 05:28 MCV 91.7 fL (80-100) 10/07/24 05:28 MCH 32.5 pg (27.0-35.0) 10/07/24 05:28 MCHC 35.5 g/dL (32.0-36.0) 10/07/24 05:28 RDW 13.3 % (12.1-15.2) 10/07/24 05:28 Plt Count 289 thou/uL (152-406) 10/07/24 05:28 MPV 7.0 fL (7.6-11.3) L 10/07/24 05:28 Neutrophils % 74.9 % (41.7-73.7) H 10/07/24 05:28 Lymphocytes % 12.8 % (15.3-44.8) L 10/07/24 05:28 Monocytes % 10.2 % (3.3-12.3) 10/07/24 05:28 Eosinophils % 1.8 % (0-4.4) 10/07/24 05:28 Basophils % 0.3 % (0-1.3) 10/07/24 05:28 Absolute Neutrophils 5.3 K/uL (1.8-8.0) 10/07/24 05:28 Absolute Lymphocytes 0.9 K/uL (0.7-4.9) 10/07/24 05:28 Absolute Monocytes 0.7 K/uL (0.1-1.3) 10/07/24 05:28 Absolute Eosinophils 0.1 K/uL (0-0.5) 10/07/24 05:28 Absolute Basophils 0.0 K/uL (0-0.5) 10/07/24 05:28 Sodium 137 mEq/L (136-145) 10/07/24 05:28 Potassium 4.3 mEq/L (3.5-5.1) 10/07/24 05:28 Chloride 106 mEq/L (98-107) 10/07/24 05:28 Carbon Dioxide 29 mEq/L (21-32) 10/07/24 05:28 Anion Gap 6.3 mEq/L (5.0-15.0) 10/07/24 05:28 BUN 17 mg/dL (7-18) 10/07/24 05:28 Creatinine 0.78 mg/dL (0.70-1.30) 10/07/24 05:28 Est GFR (CKD-EPI) 100 ml/min (=/>90) 10/07/24 05:28 Glucose 106 mg/dL (74-106) 10/07/24 05:28 POC Glucose 110 mg/dL (65-120) 10/08/24 12:05 Hemoglobin A1c 7.5 % (4.2-6.3) H 09/30/24 06:01 Calcium 9.0 mg/dL (8.5-10.1) 10/07/24 05:28 Magnesium 2.3 mg/dL (1.6-2.4) 10/07/24 05:28 Albumin 3.1 g/dL (3.4-5.0) L 10/07/24 05:28 Prealbumin 16.6 mg/dL (20-40) L 10/07/24 05:28 Urine Color Yellow (Yellow) 09/29/24 19:00 Urine Clarity Clear (Clear) 09/29/24 19:00 Urine pH 6.0 (5.0-7.0) 09/29/24 19:00 Ur Specific [place] > 1.030 (1.005-1.030) H 09/29/24 19:00 Glucose (UA)(Auto) 4+ (Negative) H 09/29/24 19:00 Urine Ketones 1+ (Negative) H 09/29/24 19:00 Urine Blood Negative (Negative) 09/29/24 19:00 Urine Nitrite Negative (Negative) 09/29/24 19:00 Urine Bilirubin Negative (Negative) 09/29/24 19:00 Urine Urobilinogen 1+ (Normal) H 09/29/24 19:00 Ur Leukocyte Esterase Negative Shantanu/uL (Negative) 09/29/24 19:00 Urine RBC <5 /HPF (None Seen) 09/29/24 19:00 Urine WBC <5 /HPF (<5) 09/29/24 19:00 Ur Squamous Epith Cells None seen /HPF (None Seen) 09/29/24 19:00 U Non-Squamous Epi Cells <5 /HPF (None Seen) 09/29/24 19:00 Urine Bacteria None seen /HPF (<20) 09/29/24 19:00 Urine Mucus Slight /HPF (None Seen) 09/29/24 19:00 Urine Culture Reflexed Not needed 09/29/24 19:00 Urine Total Protein Trace (Negative) H 09/29/24 19:00 Weight: 150 lb 1.6 oz Wound Present: No Closed Surgical Incision Present: Yes Negative Pressure Wound Therapy Present: No Physician Update: Labs reviewed has mild malnutrition. BIMS 14. Left shoulder pain is moderate. Right groin incision is healing well. He may go to [facility] for SNF. MOCA 24, mild left visual field neglect. CGA for turning in bed, and transfers. Uses the left platform walker 20'. WC 500' with SBA. Pain in left shoulder and has bowel and bladder incontinence. Need quing. Left biceps 2/5. 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 Please see the Rehabilitation Signature page for all necessary signatures.
[2024-10-09 05:13] VITALS: BMI 25.4
[2024-10-09 18:41] VITALS: TEMP 98
[2024-10-10 01:09] LABS: Absolute Eosinophils 0.2 K/uL (0-0.5); Absolute Lymphocytes (CBC) 0.9 K/uL (0.7-4.9); Absolute Monocytes 0.7 K/uL (0.1-1.3); Absolute Neutrophil 5.2 K/uL (1.8-8.0); Basophils % 0.4 % (0-1.3); Eosinophils % 2.3 % (0-4.4); Hematocrit 37.4 % (39.6-49.0); Hemoglobin 13.1 g/dL (13.6-17.9); Lymphocytes % 12.5 % (15.3-44.8); MCH 32.3 pg (27.0-35.0); MCHC 35.1 g/dL (32.0-36.0); MCV 92.1 fL (80-100); MPV 7.3 fL (7.6-11.3); Monocytes % 9.7 % (3.3-12.3); Neutrophils % 75.1 % (41.7-73.7); Platelets 263 thou/uL (152-406); RBC Red Blood Cell Count 4.06 M/uL (4.33-5.43); Red Cell Distribution Width 13.3 % (12.1-15.2)
[2024-10-10] MEDS ORDERED: TRAMADOL HCL 50 MG TAB PO PRN (01:14)
[2024-10-10 01:21] LABS: Anion Gap 7.2 mEq/L (5.0-15.0); Potassium 4.2 mEq/L (3.5-5.1)
--- NOTE | 2024-10-10 02:25 | RAD REPORT ---
EXAM: AP view(s) of the abdomen Abdomen 1 View (KUB) HISTORY: gi bleed COMPARISON: None FINDINGS: Nonobstructive bowel gas pattern.. Large pancolonic stool burden. No suspicious calcifications are seen. No acute osseous abnormality. Other: n/a IMPRESSION: Nonobstructive bowel gas pattern. Large pancolonic stool burden.
[2024-10-10] MEDS ORDERED: SODIUM CHLORIDE 0.9% 10ML INJ IV PRN ×2 (02:44→04:05)
[2024-10-10] MEDS: NA CHLORIDE 0.9% 1,000 ML IV SCH (03:04)
[2024-10-10] MEDS: PANTOPRAZOLE 40 MG INJ IVP ONE (03:04)
[2024-10-10 05:24] VITALS: BP 122/71
[2024-10-11] MEDS ORDERED: PANTOPRAZOLE 40 MG INJ IVP SCH (08:00)
== END 2024-10-10 06:20 | disposition short-term general hospital (02) | DRG 57 ==
LOC: 5TH 18:25
PROVIDERS: ADMIT Psychiatry & Neurology Neurology with Special Qualifications in Child Neurology; ATTEND Psychiatry & Neurology Neurology with Special Qualifications in Child Neurology
DX: I69.354 Hemiplegia and hemiparesis following cerebral infarction affecting left non-dominant side (principal); C20 Malignant neoplasm of rectum; E44.1 Mild protein-calorie malnutrition; M62.838 Other muscle spasm; M25.552 Pain in left hip; G25.81 Restless legs syndrome; G47.00 Insomnia, unspecified; K59.09 Other constipation; E11.9 Type 2 diabetes mellitus without complications; K21.9 Gastro-esophageal reflux disease without esophagitis; E78.5 Hyperlipidemia, unspecified; F32.A Depression, unspecified; R14.1 Gas pain; M25.512 Pain in left shoulder; D64.9 Anemia, unspecified; R32 Unspecified urinary incontinence; R15.9 Full incontinence of feces; Z88.8 Allergy status to other drugs, medicaments and biological substances; Z68.25 Body mass index [BMI] 25.0-25.9, adult
CPT/HCPCS: 36415; 74018; 80048; 81001; 82040; 82947; 83036; 83735; 84134; 85025; 92523; 97110; 97112; 97116; 97129; 97163; 97165; 97530; 97542; J1815; J2003; J2470; J7030

== ENCOUNTER 2024-10-10 05:52 | Inpatient (IN) | payer OTHER ==
[2024-10-10] MEDS ORDERED: ONDANSETRON 4 MG/2 ML VIAL IV PRN (06:22)
[2024-10-10] MEDS ORDERED: ALBUTEROL 2.5 MG/3 ML NEB SOL NEB PRN ×2 (06:22→10:27)
[2024-10-10] MEDS ORDERED: NA CHLORIDE 0.9% 250 ML IV SCH (07:00)
[2024-10-10 07:04] VITALS: BMI 23.8
[2024-10-10 07:13] LABS: Absolute Eosinophils 0.2 K/uL (0-0.5); Absolute Lymphocytes (CBC) 1.1 K/uL (0.7-4.9); Absolute Monocytes 0.7 K/uL (0.1-1.3); Absolute Neutrophil 6.5 K/uL (1.8-8.0); Basophils % 0.5 % (0-1.3); Eosinophils % 1.9 % (0-4.4); Hematocrit 36.2 % (39.6-49.0); Hemoglobin 12.6 g/dL (13.6-17.9); Lymphocytes % 12.8 % (15.3-44.8); MCH 32.2 pg (27.0-35.0); MCHC 34.7 g/dL (32.0-36.0); MCV 92.8 fL (80-100); MPV 7.7 fL (7.6-11.3); Monocytes % 8.4 % (3.3-12.3); Neutrophils % 76.4 % (41.7-73.7); Platelets 298 thou/uL (152-406); Red Cell Distribution Width 13.4 % (12.1-15.2)
[2024-10-10] MEDS: NA CHLORIDE 0.9% 1,000 ML IV SCH (07:38)
[2024-10-10 07:40] LABS: Albumin 3.2 g/dL (3.4-5.0); Albumin/Globulin Ratio 0.9 (1.1-1.8); Anion Gap 7.3 mEq/L (5.0-15.0); Bilirubin Total 0.5 mg/dL (0.2-1.0); C-Reactive Protein 6.96 mg/L (<3.00); Globulin 3.6 g/dL (2.3-3.5); Potassium 4.3 mEq/L (3.5-5.1); Protein, Total 6.8 g/dL (6.4-8.2)
[2024-10-10] MEDS ORDERED: SODIUM CHLORIDE 0.9% 10ML INJ IV PRN (09:04)
--- NOTE | 2024-10-10 09:08 | P.DS ---
Admission Date: 10/10/24 Discharge Date: 10/10/24 Brief History of Present Illness: 64-year-old male past medical history of CVA, depression, hyperlipidemia, rectal cancer, diabetes mellitus, was in acute inpatient rehab for acute CVA left-sided deficits and frequent falls. While in acute rehab, was transferred for ICU for GI bleed.He was on chronic anticoagulation, Eliquis. Alert and oriented x 4. Hemoglobin 13.1 0.1, repeat 12.6, Patient was seen by surgery, plan to transfer to higher level of care for acute GI bleed. Physician Discharge Instructions: -Transfer to higher level of care for GI evaluation for GI bleed -Please if any questions regarding hospital stay -Please call nursing station at [phone] if any nursing or medication questions -Return to the emergency room if symptoms worsen Diet: ADA, low sodium Activity: Fall precautions Hospital Course: 64-year-old male past medical history of CVA, depression, hyperlipidemia, rectal cancer, diabetes mellitus, was in acute inpatient rehab for acute CVA left-sided deficits and hx of frequent falls. While in acute rehab, was transferred for ICU for GI bleed.He was on chronic anticoagulation, Eliquis. Alert and oriented x 4. Hemoglobin 13.1 0.1, repeat 12.6, Patient was seen by surgery, plan to tr ansfer to higher level of care for acute GI bleed. Started on normal saline, pantoprazole twice daily, Zosyn. KUB Nonobstructive bowel gas pattern. Large pancolonic stool burden. Weekly PT Note in rehab Left shoulder pain is moderate. Right groin incision is healing well. He may go to [facility] for SNF. MOCA 24, mild left visual field neglect. CGA for turning in bed, and transfers. Uses the left platform walker 20'. WC 500' with SBA. Pain in left shoulder and has bowel and bladder incontinence. Need quing. Left biceps 2/5. Speech seeing for neglect, impulsivity CM Discharge planning after ASHELY WOODRUFF WITH [facility]. Physician Discharge Instructions: -Transfer to higher level of care for GI evaluation for GI bleed -Please if any questions regarding hospital stay -Please call nursing station at [phone] if any nursing or medication questions -Return to the emergency room if symptoms worsen Diet: ADA, low sodium Activity: Fall precautions <Brie Coronado - Last Filed: 10/10/24 10:07> Admission Date: 10/10/24 Discharge Date: 10/10/24 <Estefania Gurrola - Last Filed: 10/10/24 17:03> Disposition: [facility] Discharge Condition: GOOD Vital Signs/Physical Exam: Temp Pulse Resp BP Pulse Ox 122 H 23 H 102/74 99 10/10/24 07:00 10/10/24 07:00 10/10/24 07:00 10/10/24 07:00 General: Alert, In no apparent distress, Oriented x3 HEENT: Atraumatic, Normocephalic Neck: Supple, JVD not distended Respiratory: Clear to auscultation bilaterally, Normal air movement Cardiovascular: Normal pulses, Regular rate/rhythm, Normal S1 S2 Gastrointestinal: Normal bowel sounds, Other (Rectal bleeding, tenderness) Musculoskeletal: No swelling, No contractures, Other (CVA, left sided weakness) Integumentary: No tenderness/swelling, No erythema Neurological: Normal speech, Normal strength at 5/5 x4 extr, Other (Left-sided weak) Laboratory Data at Discharge: WBC 8.40 thou/uL (4.3-10.9) 10/10/24 06:45 Hgb 12.6 g/dL (13.6-17.9) L 10/10/24 06:45 Hct 36.2 % (39.6-49.0) L 10/10/24 06:45 Plt Count 298 thou/uL (152-406) 10/10/24 06:45 Sodium 137 mEq/L (136-145) 10/10/24 06:45 Potassium 4.3 mEq/L (3.5-5.1) 10/10/24 06:45 BUN 16 mg/dL (7-18) 10/10/24 06:45 Creatinine 0.91 mg/dL (0.70-1.30) 10/10/24 06:45 Glucose 196 mg/dL (74-106) H 10/10/24 06:45 Total Bilirubin 0.5 mg/dL (0.2-1.0) 10/10/24 06:45 AST 31 U/L (15-37) 10/10/24 06:45 ALT 37 U/L (16-61) 10/10/24 06:45 Alkaline Phosphatase 209 U/L (45-117) H 10/10/24 06:45 <Brie Coronado - Last Filed: 10/10/24 10:07> Vital Signs/Physical Exam: Temp Pulse Resp BP Pulse Ox 97.9 F 108 H 19 91/71 100 10/10/24 12:00 10/10/24 15:00 10/10/24 15:00 10/10/24 15:00 10/10/24 15:00 Laboratory Data at Discharge: WBC 8.40 thou/uL (4.3-10.9) 10/10/24 06:45 Hgb 10.4 g/dL (13.6-17.9) L D 10/10/24 12:19 Hct 36.2 % (39.6-49.0) L 10/10/24 06:45 Plt Count 298 thou/uL (152-406) 10/10/24 06:45 Sodium 137 mEq/L (136-145) 10/10/24 06:45 Potassium 4.3 mEq/L (3.5-5.1) 10/10/24 06:45 BUN 16 mg/dL (7-18) 10/10/24 06:45 Creatinine 0.91 mg/dL (0.70-1.30) 10/10/24 06:45 Glucose 196 mg/dL (74-106) H 10/10/24 06:45 Total Bilirubin 0.5 mg/dL (0.2-1.0) 10/10/24 06:45 AST 31 U/L (15-37) 10/10/24 06:45 ALT 37 U/L (16-61) 10/10/24 06:45 Alkaline Phosphatase 209 U/L (45-117) H 10/10/24 06:45 <Estefania Gurrola - Last Filed: 10/10/24 17:03> Diet: [place] Time spent managing pt's care (in minutes): 45 <Brie Coronado - Last Filed: 10/10/24 10:07> Physician Review: Patient Assessed, Agree with Above Assessment and Plan (Transfer for higher level of care including consultation with IR for coil embolization or rectal surgeon with specialization) <Estefania Gurrola - Last Filed: 10/10/24 17:03> Home Medications: Aspirin Chewable [Aspirin Chewable*] 81 mg PO DAILY 09/29/24 Atorvastatin Calcium [Lipitor] 80 mg PO BEDTIME 09/29/24 Clopidogrel Bisulfate [Plavix] 75 mg PO DAILY 09/29/24 Famotidine [Pepcid] 20 mg PO BID PRN 09/29/24 Glipizide [Glipizide Xl] 5 mg PO DAILY 09/29/24 Sennosides/Docusate Sodium [Senna-S Tablet] 1 each PO BID 09/29/24 Physician Discharge Instructions: 64-year-old male past medical history of CVA, depression, hyperlipidemia, rectal cancer, diabetes mellitus, was in acute inpatient rehab at [facility] in [place], for acute CVA left-sided deficits and frequent falls. While in acute rehab, was transferred for ICU for GI bleed.He was on chronic anticoagulation, Eliquis. Alert and oriented x 4. Hemoglobin 13.1 0.1, repeat 12.6, Patient was seen by surgery, plan to transfer to higher level of care for acute GI bleed. Started on normal saline, pantoprazole twice daily, Zosyn. KUB Nonobstructive bowel gas pattern. Large pancolonic stool burden. Physician Discharge Instructions: -Transfer to higher level of care for GI evaluation for GI bleed -Please if any questions regarding hospital stay -Please call nursing station at [phone] if any nursing or medication questions -Return to the emergency room if symptoms worsen Diet: ADA, low sodium Activity: Fall precautions
--- NOTE | 2024-10-10 09:55 | P.HP ---
Certification for Inpatient Patient admitted to: Inpatient Practitioner: I am a practitioner with admitting privileges, knowledge of patient current condition, hospital course, and medical plan of care. Services: Services provided to patient in accordance with Admission requirements found in Title 42 Section 412.3 of the Code of Federal Regulations Patient History Date of Service: 10/10/24 Reason for admission: GIB History of Present Illness: 64-year-old male past medical history of CVA, depression, hyperlipidemia, rectal cancer, diabetes mellitus, was in acute inpatient rehab for acute CVA left-sided deficits and frequent falls. While in acute rehab, was transferred for ICU for GI bleed.He was on chronic anticoagulation, Eliquis. Alert and oriented x 4. Hemoglobin 13.1 0.1, repeat 12.6, Patient was seen by surgery, plan to transfer to higher level of care for acute GI bleed. Allergies NSAIDS (Non-Steroidal Anti-Inflamma Allergy (Intermediate, Verified 09/29/24 23:31) constipation aspirin Allergy (Mild, Verified 11/26/12 16:25) Hives polyethylene glycol 3350 [From Miralax] Allergy (Mild, Verified 09/29/24 23:31) Hives gabapentin [From Neurontin] Adverse Reaction (Mild, Verified 09/29/24 23:31) dizziness Home Medications: Aspirin Chewable [Aspirin Chewable*] 81 mg PO DAILY 09/29/24 Atorvastatin Calcium [Lipitor] 80 mg PO BEDTIME 09/29/24 Clopidogrel Bisulfate [Plavix] 75 mg PO DAILY 09/29/24 Famotidine [Pepcid] 20 mg PO BID PRN 09/29/24 Glipizide [Glipizide Xl] 5 mg PO DAILY 09/29/24 Sennosides/Docusate Sodium [Senna-S Tablet] 1 each PO BID 09/29/24 - Past Medical/Surgical History Has patient received pneumonia vaccine in the past: No Diabetic: Yes -: dm -: rectal ca -: chemo -last mar 2024 -: rt mca stroke -: rt cw port a cath -: cerebral angiogram - Family History Mother -: Diabetes Father -: Heart disease - Social History Smoking Status: Never smoker Alcohol use: No CD- Drugs: No Caffeine use: Yes Place of Residence: Home Review of Systems 10-point ROS is otherwise unremarkable Physical Examination - Vital Signs Blood Pressure: 102/74 Pulse: 122 Respirations: 23 Pulse Ox (%): 99 - Physical Exam General: Alert, In no apparent distress, Oriented x3 HEENT: Atraumatic, Normocephalic Neck: Supple, JVD not distended Respiratory: Clear to auscultation bilaterally, Normal air movement Cardiovascular: Normal pulses, Regular rate/rhythm Capillary refill: <2 Seconds Gastrointestinal: Normal bowel sounds, Other (GIB) Musculoskeletal: Other (L) weakness) Neurological: Normal speech, Normal strength at 5/5 x4 extr Lymphatics: No axilla or inguinal lymphadenopathy - Studies Laboratory Data (last 24 hrs) 10/10/24 10/10/24 06:45 06:45 WBC 8.40 Hgb 12.6 L Hct 36.2 L Plt Count 298 Sodium 137 Potassium 4.3 BUN 16 Creatinine 0.91 Glucose 196 H Total Bilirubin 0.5 AST 31 ALT 37 Alkaline Phosphatase 209 H Assessment and Plan - Plan hospital Course: 64-year-old male past medical history of CVA, depression, hyperlipidemia, rectal cancer, diabetes mellitus, was in acute inpatient rehab for acute CVA left-sided deficits and frequent falls. While in acute rehab, was transferred for ICU for GI bleed.He was on chronic anticoagulation, Eliquis. Alert and oriented x 4. Hemoglobin 13.1 0.1, repeat 12.6, Patient was seen by surgery, plan to transfer to higher level of care for acute GI bleed. Started on normal saline, pantoprazole twice daily, Zosyn. KUB Nonobstructive bowel gas pattern. Large pancolonic stool burden.. Plan to transfer to higher level of care for GI bleed Assessment GI bleed was seen by surgery, patient needs to be transferred for higher level of care for GIB CVA l left hemiparesis,, hemineglect patient was in acute rehab with PT OT and speech, Diabetes type 2 hypertension, hyperlipidemia, depression, resume home meds after discharge Physician Discharge Instructions: -Transfer to higher level of care for GI evaluation for GI bleed -Please if any questions regarding hospital stay -Please call nursing station at [phone] if any nursing or medication questions -Return to the emergency room if symptoms worsen Diet: ADA, low sodium Discharge Plan: Transfer - Advance Directives Does patient have a Living Will: Yes Does patient have a Durable POA for Healthcare: No - Code Status/Comfort Care Comfort Measures: Palliative Care Critical Care: Yes Time Spent Managing Pts Care (In Minutes): 55
--- NOTE | 2024-10-10 10:33 | RAD REPORT ---
EXAMINATION: TWO VIEW CHEST XR CLINICAL INDICATION: Stroke TECHNIQUE: 2 views of the chest was performed. COMPARISON: 09/22/2024 FINDINGS: The lungs are well inflated and clear. The heart is upper limit of normal in size. Right-sided venous catheters tip in SVC. Mildly tortuous thoracic aorta.
[2024-10-10] MEDS: PANTOPRAZOLE 40 MG INJ IVP SCH (10:41)
[2024-10-10] MEDS: PIPER TAZO 3.375 GM in NA CHLORIDE 0.9% 100 ML IV SCH (10:41)
[2024-10-10] MEDS: FENTANYL CITR 100 MCG/2 ML IV PRN (10:41)
--- NOTE | 2024-10-10 12:36 | CON ---
Date of Consultation: 10/10/2024 Brief History Of Present Illness: The patient is a 64-year-old male who has a history of rectal canc er treated with chemotherapy who is due to have surgical excision of his rectal cancer in the mid fri next month. However, approximately a week and a half ago, he developed partial weakness consisten t with possible CVA stroke. He ultimately came to the hospital and was not a candidate for intervent ion and thrombolytic agents, and as such, he was started on high-dose antiplatelet agents. He recent ly started having GI bleeding with significant amount of bloody stool, both bright and cloudy beginni ng last night, and as such, he was transferred to the hospital with the above-stated issue. The sri ent currently is pain-free and has no complaints. Does not feel weak, fatigued, or have any other si gnificant complaints other than some left-sided deficits and weakness residual from his recent CVA, h e states. Past Medical History: Rectal cancer, status post chemotherapy, diabetes, hypertension. Allergies: TO NSAIDS, ASPIRIN, MIRALAX, NEURONTIN. Home Medications: Include aspirin, Lipitor, Plavix, Pepcid, glipizide, and senna. Family History: Significant for diabetes, heart disease. Social History: He denies smoking, alcohol, or recreational drug use. Review of Systems: Ten-point review of systems other than HPI, denies. Physical Examination: General: At the time of my examination, he is awake, alert, and oriented. Psychiatric: He is appropriate, conversive. HEENT: He is normocephalic. Sclerae anicteric. Mucous membranes moist. Oropharynx clear. Neck: Supple without JVD. Chest: Normal to expansion and excursion. Cardiovascular: Regular rate and rhythm. Pulmonary: Clear to auscultation bilaterally. Abdomen: Soft, nontender, nondistended. He has left-sided residual weakness on the left side of his body. Rectal: He did have a significant amount of blood in his garment consistent with GI bleeding. Laboratory Data: He had a laboratory exam, which revealed a white blood cell count of 8.4, hemoglobi n is 12.6, hematocrit of 36.2, platelet count is 298. Sodium 137, potassium 4.3, chloride 106, carbo n dioxide 28, BUN 16, creatinine 0.9, glucose is 196, total bilirubin 0.5, AST is 31, ALT 37, alkalin e phosphatase is 209. Assessment And Plan: 1. This is a 64-year-old man who presents with multiple medical issues, including a recent stroke, on antiplatelet agent. 2. History of rectal cancer, due for surgery in the upcoming short-term future, status post chemother apy. 3. Now with gastrointestinal bleed, likely contributed to by his antiplatelet agent medications which are necessary for his MCA stroke. 4. I have recommended transfer to a higher level of care, so a possible endovascular angiographic vero luation could be performed as we have no ability to manage this patient's GI bleed if it is due to hi s rectal cancer, and as such, I recommend he get transfer for higher level of care to have a further workup of his etiology of his gastrointestinal bleed and to have the option of intervention which is unavailable at this particular facility. 5. I have recommended a type and cross and we will check serial H and H and transfuse as necessary in anticipation for transfer. I have explained risks, benefits, and alternatives of the above-stated p benita. The patient agreed to proceed as indicated. Thank you for this interesting consult. GARY/ADALGISA Voice ID: [id number] Report ID: [id number]
[2024-10-10 13:34] VITALS: O2SAT 100
[2024-10-10] MEDS ORDERED: PIPER TAZO 2.25 GM in NA CHLORIDE 0.9% 50 ML IV SCH (17:00)
[2024-10-10 17:58] VITALS: BP 93/75; TEMP 97.7
== END 2024-10-10 18:00 | disposition short-term general hospital (02) | DRG 378 ==
LOC: 3RD-ICU 05:52
PROVIDERS: ADMIT Family Medicine; ATTEND Family Medicine
DX: K92.2 Gastrointestinal hemorrhage, unspecified (principal); C20 Malignant neoplasm of rectum; I69.354 Hemiplegia and hemiparesis following cerebral infarction affecting left non-dominant side; E78.5 Hyperlipidemia, unspecified; F32.A Depression, unspecified; E11.9 Type 2 diabetes mellitus without complications; R29.6 Repeated falls; Z91.81 History of falling; Z79.01 Long term (current) use of anticoagulants; Z79.82 Long term (current) use of aspirin; Z79.02 Long term (current) use of antithrombotics/antiplatelets; Z79.899 Other long term (current) drug therapy
CPT/HCPCS: 36415; 71046; 80053; 82947; 84484; 85018; 85025; 86140; 86850; 86900; 86901; J2470; J2543; J3010; J7030